=== PATIENT | female | born 1950 | race Caucasian/White ===

== ENCOUNTER 2021-01-07 20:36 | Inpatient (IN) | payer OTHER ==
[~2021-01-07] VITALS: Ht 162.6 cm; Wt 65.5 kg
[2021-01-07 20:56] VITALS: BP 141/64
[2021-01-07] MEDS ORDERED: ZOFRAN ODT4 MG PO (21:02)
[2021-01-07] MEDS ORDERED: ACID-PEP20 MG PO (21:02)
[2021-01-07] MEDS ORDERED: PHENERGAN 25 MG25 M1 PO (21:02)
[2021-01-07] MEDS ORDERED: DIFLUCAN100 MG PO (21:03)
[2021-01-07] MEDS ORDERED: VALACYCLOVIR1000 MG PO (21:03)
[2021-01-07 21:23] LABS: HEMATOCRIT 26.1 % (37.0-47.0); HEMOGLOBIN 9.1 gm/dL (12.0-15.0); MCH 31.1 pg (26.0-34.0); MCHC 34.7 g/dL (28.0-37.0); MCV 89.5 fL (80.0-100.0); MPV 8.7 fl. (7.2-11.1); NUCLEATED RBCS 0 /100WBC; PLATELET COUNT* 118 thou/uL (150-400); RBC 2.92 mil/uL (4.20-5.00); RDW-CV 17.4 % (10.5-14.5); WBC 4.8 thou/uL (4.0-11.0)
[2021-01-07 21:39] LABS: CALCIUM 8.8 mg/dL (8.5-10.1); POTASSIUM 4.3 mmol/L (3.5-5.1)
[2021-01-07 21:44] LABS: ALBUMIN 2.8 g/dL (3.4-5.0); APTT 24.4 Seconds (25.0-31.3); INR 1.1; PROTIME 11.2 Seconds (9.20-11.50); TOTAL BILIRUBIN 0.3 mg/dL (<0.1-1.0); TOTAL PROTEIN 6.5 g/dL (6.4-8.2)
[2021-01-07 22:07] LABS: ABSOLUTE LYMPHOCYTES 0.3 thou/uL (0.8-5.3); ABSOLUTE MONOCYTES 0.8 thou/uL (0.0-1.2); ABSOLUTE NEUTROPHILS 3.7 thou/uL (1.6-8.1)
[2021-01-07 22:08] LABS: ANISOCYTOSIS 1+; MICROCYTES 1+; PLATELET ESTIMATE ADEQUATE
[2021-01-08] VITALS (7 sets, daily range): BP systolic 95–115; BP diastolic 51–76
[2021-01-08 00:38] LABS: URINE BILIRUBIN NEGATIVE (Negative); URINE BLOOD NEGATIVE (Negative); URINE CLARITY CLEAR; URINE COLOR YELLOW; URINE GLUCOSE-RANDOM NEGATIVE (Negative); URINE KETONES TRACE (Negative); URINE LEUKOCYTES-REFLEX NEGATIVE (Negative); URINE NITRITE-REFLEX NEGATIVE (Negative); URINE PROTEIN TRACE (Negative); URINE SPECIFIC GRAVITY 1.015 (1.005-1.030); URINE UROBILINOGEN 0.2 E.U./dl (0.2-1.0)
--- NOTE | 2021-01-08 14:25 | EKG ---
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1950 Requested By: Bettina Coronado Order Number: [id number] MD: Goldy Brown Measurements Intervals [place] Rate: 170 P: [place]: QRS: 6 QRSD: 107 T: 60 QT: 295 QTc: 497 Interpretive Statements Atrial fibrillation with rapid V-rate Ventricular premature complex Minor IVCD Low voltage, precordial leads Baseline wander in lead(s) I,III,aVL No previous ECG available for comparison Electronically Signed On 01-08-2021 14:25:34 CDT by Goldy Brown [email or web address] <ELECTRONICALLY SIGNED> By: Goldy Brown MD, [facility] 01/08/21 1425 07 07 Goldy Brown MD, FAC /EPI
--- NOTE | 2021-01-08 15:18 | 2DMMODE ---
[place] [address] 2 D/M-MODE ECHOCARDIOGRAM Name: KATI YEE Johanna Room: [address] IN M.R.#: [id number] Admission: 01/08/21 Attend Phys: Elise Agustin MD Discharge: Date of : 48 Date of Service: 01/08/21 1517 Report #: [id number] THIS REPORT FOR: cc: Maria Ramírez MD, Diane S. MD Holkins,Goldy Elise MD [facility] ~ APPROVED REPORT Study performed: 01/08/2021 14:30:36 EXAM: Comprehensive 2D, Doppler, and color-flow Echocardiogram Patient Location: Bedside BSA: 1.72 HR: 77 bpm BP: 105/54 mmHg Other Information Study Quality: Good Indications Atrial Fibrillation 2D Dimensions IVSd: 12.98 (7-11mm) LVOT Diam: 19.27 (18-24mm) LVDd: 36.90 mm PWd: 10.83 (7-11mm) Ascending Ao: 30.06 (22-36mm) LVDs: 30.90 (25-40mm) Aortic Root: 22.21 mm Volumes Left Atrial Volume (Systole) LA ESV Index: 27.60 mL/m2 Aortic Valve AoV Peak Jey.: 1.24 m/s AO Peak Gr.: 6.12 mmHg LVOT Max P.89 mmHg AO Mean Gr.: 3.36 mmHg LVOT Mean P.39 mmHg LVOT Max V: 1.11 m/s AO V2 VTI: 16.69 cm LVOT Mean V: 0.71 m/s AVERY (VTI): 3.01 cm2 LVOT V1 VTI: 17.23 cm Mitral Valve E/A Ratio: 5.71 [place] [address] 2 D/M-MODE ECHOCARDIOGRAM Name: KATI YEE Room: [address] IN .R.#: [id number] Admission: 01/08/21 Attend Phys: Elise Agustin MD Discharge: Date of : 48 Date of Service: 01/08/21 1517 Report #: [id number] MV Decel. Time: 124.32 ms MV E Max Jey.: 1.47 m/s MV PHT: 36.05 ms MVA (PHT): 6.10 cm2 TDI E/Lateral E': 8.17 E/Medial E': 6.68 Medial E' Jey.: 0.22 m/s Lateral E' Jey.: 0.18 m/s Pulmonary Valve PV Peak Jey.: 0.98 m/s PV Peak Gr.: 3.86 mmHg Tricuspid Valve RAP Estimate: 5.00 mmHg TR Peak Gr.: 21.12 mmHg RVSP: 26.12 mmHg PA Pressure: 26.12 mmHg Left Ventricle The left ventricle is normal size. There is normal LV segmental wall motion. There is normal left ventricular wall thickness. Left ventricular systolic function is normal. The left ventricular ejection fraction is within the normal range. LVEF is 60%. This study is not technically sufficient to allow evaluation of the LV diastolic function. Right Ventricle The right ventricle is normal size. The right ventricular systolic function is normal. Atria Left atrium is borderline dilated. Right atrium is at the upper limits of normal. Aortic Valve The aortic valve is normal in structure. No aortic regurgitation is present. There is no aortic valvular stenosis. Mitral Valve The mitral valve is normal in structure. Trace mitral regurgitation. No evidence of mitral valve stenosis. Tricuspid Valve The tricuspid valve is normal in structure. [place] [address] 2 D/M-MODE ECHOCARDIOGRAM Name: KATI YEE Room: [address] IN [facility]#: [id number] Admission: 01/08/21 Attend Phys: Elise Agustin MD Discharge: Date of : 48 Date of Service: 01/08/21 1517 Report #: [id number] Pulmonic Valve The pulmonary valve is normal in structure. There is no pulmonic valvular regurgitation. Great Vessels The aortic root is normal in size. IVC is normal in size and collapses >50% with inspiration. Pericardium There is no pericardial effusion. <Conclusion> The left ventricle is normal size. There is normal left ventricular wall thickness. Left ventricular systolic function is normal. The left ventricular ejection fraction is within the normal range. LVEF is 60%. This study is not technically sufficient to allow evaluation of the LV diastolic function. The right ventricle is normal size. Left atrium is borderline dilated. Right atrium is at the upper limits of normal. The aortic valve is normal in structure. The mitral valve is normal in structure. Trace mitral regurgitation. The tricuspid valve is normal in structure. IVC is normal in size and collapses >50% with inspiration. There is no pericardial effusion. There is normal LV segmental wall motion. <ELECTRONICALLY SIGNED> By: Goldy Brown MD, FACC 01/08/21 1517 151 151 Goldy Brown MD, FACC /INF
[2021-01-08 17:18] LABS: ABSOLUTE LYMPHOCYTES 0.2 thou/uL (0.8-5.3); ABSOLUTE MONOCYTES 0.4 thou/uL (0.0-1.2); ABSOLUTE NEUTROPHILS 5.5 thou/uL (1.6-8.1); BASOPHILS 0.1 %; HEMOGLOBIN 8.3 gm/dL (12.0-15.0); LYMPHOCYTES 2.6 %; MCHC 34.7 g/dL (28.0-37.0); MCV 89.4 fL (80.0-100.0); MPV 8.5 fl. (7.2-11.1); NUCLEATED RBCS 0 /100WBC; PLATELET COUNT* 122 thou/uL (150-400); POLYS 90.3 %; RBC 2.69 mil/uL (4.20-5.00); RDW-CV 17.6 % (10.5-14.5); WBC 6.1 thou/uL (4.0-11.0)
[2021-01-08 17:25] LABS: CALCIUM 7.9 mg/dL (8.5-10.1); CREATININE 0.8 mg/dL (0.6-1.3); MAGNESIUM 1.7 mg/dL (1.8-2.4); POTASSIUM 4.2 mmol/L (3.5-5.1)
[2021-01-09] VITALS (7 sets, daily range): BP systolic 91–127; BP diastolic 59–75
[2021-01-09 04:18] LABS: HEMOGLOBIN 7.7 gm/dL (12.0-15.0); MCH 30.7 pg (26.0-34.0); WBC 5.3 thou/uL (4.0-11.0)
[2021-01-09 04:20] LABS: ABSOLUTE LYMPHOCYTES 0.1 thou/uL (0.8-5.3); ABSOLUTE MONOCYTES 0.2 thou/uL (0.0-1.2); BASOPHILS 0.1 %; EOSINOPHILS 0.1 %; HEMATOCRIT 22.4 % (37.0-47.0); LYMPHOCYTES 2.2 %; MCHC 34.2 g/dL (28.0-37.0); MCV 89.8 fL (80.0-100.0); MONOCYTES 3.2 %; MPV 8.8 fl. (7.2-11.1); NUCLEATED RBCS 0 /100WBC; PLATELET COUNT* 119 thou/uL (150-400); POLYS 94.4 %; RBC 2.49 mil/uL (4.20-5.00)
[2021-01-09 04:31] LABS: CALCIUM 8.1 mg/dL (8.5-10.1); POTASSIUM 3.5 mmol/L (3.5-5.1)
[2021-01-10 00:35] VITALS: BP 122/73
[2021-01-10 04:48] LABS: CALCIUM 8.4 mg/dL (8.5-10.1); POTASSIUM 3.9 mmol/L (3.5-5.1)
[2021-01-10 05:19] LABS: ABSOLUTE LYMPHOCYTES 0.1 thou/uL (0.8-5.3); ABSOLUTE MONOCYTES 0.4 thou/uL (0.0-1.2); ABSOLUTE NEUTROPHILS 10.1 thou/uL (1.6-8.1); BASOPHILS 0.1 %; HEMATOCRIT 23.8 % (37.0-47.0); HEMOGLOBIN 8.2 gm/dL (12.0-15.0); LYMPHOCYTES 1.4 %; MCH 31.1 pg (26.0-34.0); MCHC 34.6 g/dL (28.0-37.0); MONOCYTES 3.6 %; NUCLEATED RBCS 0 /100WBC; PLATELET COUNT* 157 thou/uL (150-400); POLYS 94.9 %; RBC 2.65 mil/uL (4.20-5.00); RDW-CV 17.6 % (10.5-14.5); WBC 10.7 thou/uL (4.0-11.0)
[2021-01-10 05:46] VITALS: BP 96/44
[2021-01-10 08:00] VITALS: BP 133/72
[2021-01-10 12:47] VITALS: BP 129/70
--- NOTE | 2021-01-10 16:42 | EKG ---
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1950 Requested By: Andreea Granados Order Number: [id number] Reading MD: Goldy Brown Measurements Intervals [place] Rate: 82 P: 50 [place]: 161 QRS: -3 QRSD: 89 T: 8 QT: 500 QTc: 584 Interpretive Statements Sinus rhythm Probable left atrial enlargement Borderline abnrm T, anterolateral leads Prolonged QT interval Compared to ECG 01/07/2021 21:08:18 Prolonged QT interval now present Atrial fibrillation no longer present Ventricular premature complex(es) no longer present Intraventricular conduction delay no longer present Electronically Signed On 01-10-2021 16:42:17 CDT by Goldy Brown [email or web address] <ELECTRONICALLY SIGNED> By: Goldy Brown MD, [facility] 01/10/21 1642 1523 1523 Goldy Brown MD, [facility] /EPI
--- NOTE | 2021-01-10 16:57 | EKG ---
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 : 1950 Requested By: Andreea Granados Order Number: [id number] Reading MD: Goldy Brown Measurements Intervals [place] Rate: 134 P: [place]: QRS: -18 QRSD: 91 T: 7 QT: 324 QTc: 484 Interpretive Statements Atrial flutter Abnormal R-wave progression, late transition Inferior infarct, old Baseline wander in lead(s) II,III,aVF Compared to ECG 01/09/2021 15:23:42 Myocardial infarct finding now present Sinus rhythm no longer present Prolonged QT interval no longer present Electronically Signed On 01-10-2021 16:56:53 CDT by Goldy Brown [email or web address] <ELECTRONICALLY SIGNED> By: Goldy Brown MD, [facility] 01/10/21 1656 1335 133 Goldy Brown MD, [facility] /EPI
[2021-01-10 17:00] VITALS: BP 134/74
[2021-01-11] VITALS (41 sets, daily range): BP systolic 98–157; BP diastolic 54–87
[2021-01-11 04:45] LABS: ABSOLUTE LYMPHOCYTES 0.1 thou/uL (0.8-5.3); ABSOLUTE MONOCYTES 0.5 thou/uL (0.0-1.2); ABSOLUTE NEUTROPHILS 14.1 thou/uL (1.6-8.1); BASOPHILS 0.1 %; HEMATOCRIT 22.9 % (37.0-47.0); HEMOGLOBIN 7.8 gm/dL (12.0-15.0); LYMPHOCYTES 0.9 %; MCH 30.5 pg (26.0-34.0); MCHC 34.2 g/dL (28.0-37.0); MONOCYTES 3.2 %; MPV 8.6 fl. (7.2-11.1); NUCLEATED RBCS 0 /100WBC; PLATELET COUNT* 159 thou/uL (150-400); POLYS 95.8 %; RBC 2.57 mil/uL (4.20-5.00); RDW-CV 17.5 % (10.5-14.5); WBC 14.7 thou/uL (4.0-11.0)
[2021-01-11 04:59] LABS: ALBUMIN 2.3 g/dL (3.4-5.0); CALCIUM 8.6 mg/dL (8.5-10.1); CREATININE 0.9 mg/dL (0.6-1.3); POTASSIUM 4.4 mmol/L (3.5-5.1); TOTAL BILIRUBIN 0.4 mg/dL (<0.1-1.0); TOTAL PROTEIN 5.7 g/dL (6.4-8.2)
[2021-01-11 11:09] LABS: BE 0 mmol/L (-2 to +3); PCO2 41.4 mmHg (35.0-45.0); PO2 70.5 mmHg (75.0-100.0); pH 7.397 (7.340-7.450)
[2021-01-11 14:52] LABS: BE 1.4 mmol/L (-2 to +3); PO2 110.4 mmHg (75.0-100.0); pH 7.436 (7.340-7.450)
[2021-01-12] VITALS (48 sets, daily range): BP systolic 89–151; BP diastolic 44–80
[2021-01-12 03:34] LABS: HEMATOCRIT 25.8 % (37.0-47.0); HEMOGLOBIN 8.8 gm/dL (12.0-15.0); MCH 30.8 pg (26.0-34.0); MCHC 34.2 g/dL (28.0-37.0); MPV 8.7 fl. (7.2-11.1); NUCLEATED RBCS 0 /100WBC; PLATELET COUNT* 169 thou/uL (150-400); RBC 2.86 mil/uL (4.20-5.00); RDW-CV 17.4 % (10.5-14.5); WBC 10.3 thou/uL (4.0-11.0)
[2021-01-12 03:51] LABS: ALBUMIN 2.3 g/dL (3.4-5.0); CALCIUM 8.5 mg/dL (8.5-10.1); CREATININE 0.9 mg/dL (0.6-1.3); MAGNESIUM 2.2 mg/dL (1.8-2.4); PHOSPHORUS* 4.1 mg/dL (2.5-4.9); POTASSIUM 3.8 mmol/L (3.5-5.1); TOTAL BILIRUBIN 0.4 mg/dL (<0.1-1.0)
[2021-01-12 07:34] LABS: BE 2.3 mmol/L (-2 to +3); PCO2 40.5 mmHg (35.0-45.0); PO2 77.1 mmHg (75.0-100.0); pH 7.436 (7.340-7.450)
[2021-01-12 07:58] LABS: ABSOLUTE LYMPHOCYTES 0.2 thou/uL (0.8-5.3); ABSOLUTE MONOCYTES 0.4 thou/uL (0.0-1.2); ABSOLUTE NEUTROPHILS 9.7 thou/uL (1.6-8.1); ANISOCYTOSIS 1+; PLATELET ESTIMATE ADEQUATE; POIKILOCYTOSIS 1+
[2021-01-13] VITALS (47 sets, daily range): BP systolic 104–160; BP diastolic 49–78
[2021-01-13 04:34] LABS: ABSOLUTE LYMPHOCYTES 0.1 thou/uL (0.8-5.3); ABSOLUTE MONOCYTES 0.3 thou/uL (0.0-1.2); ABSOLUTE NEUTROPHILS 8.8 thou/uL (1.6-8.1); BASOPHILS 0.2 %; HEMATOCRIT 24.1 % (37.0-47.0); HEMOGLOBIN 8.2 gm/dL (12.0-15.0); LYMPHOCYTES 0.8 %; MCH 30.6 pg (26.0-34.0); MCV 89.9 fL (80.0-100.0); MONOCYTES 2.8 %; MPV 9.1 fl. (7.2-11.1); NUCLEATED RBCS 0 /100WBC; PLATELET COUNT* 184 thou/uL (150-400); POLYS 96.2 %; RBC 2.68 mil/uL (4.20-5.00); RDW-CV 17.2 % (10.5-14.5); WBC 9.2 thou/uL (4.0-11.0)
[2021-01-13 05:02] LABS: ALBUMIN 2.6 g/dL (3.4-5.0); CALCIUM 8.8 mg/dL (8.5-10.1); CREATININE 0.8 mg/dL (0.6-1.3); MAGNESIUM 2.1 mg/dL (1.8-2.4); PHOSPHORUS* 3.9 mg/dL (2.5-4.9); POTASSIUM 3.7 mmol/L (3.5-5.1); TOTAL BILIRUBIN 0.3 mg/dL (<0.1-1.0); TOTAL PROTEIN 5.8 g/dL (6.4-8.2)
--- NOTE | 2021-01-13 10:30 | EKG ---
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1950 Requested By: Alec Everett Order Number: [id number] Reading MD: Florentino Smith Measurements Intervals [place] Rate: 47 P: 40 [place]: 161 QRS: 7 QRSD: 96 T: 18 QT: 565 QTc: 500 Interpretive Statements Sinus bradycardia Probable left atrial enlargement Borderline prolonged QT interval Baseline wander in lead(s) III Compared to ECG 01/10/2021 13:35:23 Atrial flutter no longer present Electronically Signed On 01-13-2021 10:30:10 CDT by Florentino Smith [email or web address] <ELECTRONICALLY SIGNED> By: Florentino Smith MD, FAC 01/13/21 1030 1336 1336 Florentino Smith MD, FAC /EPI
--- NOTE | 2021-01-13 13:52 | EKG ---
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
--- NOTE | 2021-01-13 15:08 | CON ---
[address] [address] CONSULTATION Name: KATI YEE Room: [address] IN M.R.#: [id number] Admission: 01/08/21 Attend Phys: Elise Agustin MD Discharge: Date of : 48 Report #: [id number] THIS REPORT FOR: cc: Maria Ramírez MD, Diane S. MD Pervez, Adeel MD ~ DOC #: [id number] Luciano Cox MD DATE OF CONSULTATION: 01/08/2021 REQUESTING PHYSICIAN: Consult has been requested by Dr. Fernández. INDICATION FOR CONSULTATION: COVID-19. HISTORY OF PRESENT ILLNESS: This is a 70-year-old female, past medical history includes a history of breast cancer. She is a lifetime nonsmoker and does not have a history of a cardiac or respiratory disease in the past. The patient is currently on chemotherapy. The patient is now admitted with increasing shortness of breath as well as a cough for the last 1 week. She has been coughing up yellow sputum. She has also had hemoptysis, sputum production is new for her. She has also been feeling dizzy. The patient upon initial evaluation, tested positive for COVID-19. Initially, she also was requiring only 2 liters of oxygen to maintain O2 saturation. She has had atrial fibrillation with RVR since yesterday. Atrial fibrillation is new for her. The patient also has had a significant increase in oxygen needs, we are now up to 12 liters of oxygen to maintain O2 saturation in the low 90s. The patient does appear to be anxious. There is not much swelling of lower extremities; however, I just ordered a stat chest x-ray, which just came back and it does not look significantly worse than yesterday. The patient does have a Port-A-Cath. She has been febrile. REVIEW OF SYSTEMS: Review of systems for 12-points is negative except as mentioned above. PAST MEDICAL HISTORY: Breast cancer and is currently receiving chemotherapy. Last chemo was on 12/26/2020. She has a Port-A-Cath. SOCIAL HISTORY: She is a lifetime nonsmoker. Only occasional alcohol use. No known history of illegal drug use. ALLERGIES: SHE REPORTS THAT SHE HAS A REMOTE HISTORY OF ALLERGY TO CEPHALEXIN, BUT WAS NOT ABLE TO TELL ME THE REACTION. SHE SAYS THAT SHE HAS HAD PENICILLINS INCLUDING AMOXICILLIN WITHOUT PROBLEMS. FAMILY HISTORY: There [place] [address] CONSULTATION Name: KATI YEE Room: [address]#: [id number] Admission: 01/08/21 Attend Phys: Elise Agustin MD Discharge: Date of : 48 Report #: [id number] PHYSICAL EXAMINATION: GENERAL: She is alert, awake and oriented, appears to be anxious. VITAL SIGNS: Has a pulse of 78, blood pressure of 115/66, respiratory rate was in the mid 20s at the time of my evaluation around 25. She has a low-grade fever at 37.7, heart rate is now 78, has had heart rates up to 165 overnight. Body mass index is 25. HEENT: Head is normocephalic and atraumatic. There is no obvious thrush in her throat. There is no throat erythema. Pupils are equal and reactive. NECK: Does not show raised JVP asymmetry, mass or lymph nodes. CHEST: Symmetrical expansion on inspection and palpation on auscultation. Breath sounds are bilaterally equal, but decreased. I do not hear any added sounds. HEART: Regular. There is no murmur. ABDOMEN: Soft and nontender. LOWER EXTREMITIES: Show no edema, no calf tenderness. SKIN: Dry and intact. NEUROLOGIC: Moves all extremities bilaterally equally and spontaneously with no focal deficit identified. LABORATORY DATA: The patient had a CTA chest performed yesterday, which shows extensive infiltrates secondary to COVID-19, I suspect that there is a secondary bacterial infection as well. This is reviewed. There are no pulmonary emboli. The chest x-ray now look significantly worse than yesterday. The patient's lab work in [place] from yesterday is reviewed. I ordered repeat labs now, which are pending. ASSESSMENT AND PLAN: 1. Acute hypoxemic respiratory failure secondary to COVID-19. I suspect that there is a secondary bacterial infection as well. We will continue to titrate oxygen. If the patient fails to improve, available low threshold of adding a BiPAP while asleep. I would recommend that she be transferred to a negative pressure room as I do feel that there is a component of bronchospasm and I do want to give her nebulized bronchodilators. 2. COVID-19. I agree with dexamethasone. The question is as to whether we should increase the dose. For now, I kept the current dose of 6 mg, I switched over to IV as administration of Decadron is critical. I went ahead and ordered one dose of Solu-Medrol, now we will reassess the dexamethasone dose tomorrow. I have recommended that she start Remdesivir. I have discussed risks and benefits of convalescent plasma with the patient as well. I will go ahead and give her a unit today. I will consider giving her another unit tomorrow. I assessed I weighed the risks and benefits of giving her Actemra certainly for COVID-19. It will be beneficial. However, the patient may have a secondary [facility] [address] [place] [address] CONSULTATION Name: KATI YEE Room: [address] ADM IN ..#: [id number] Admission: 01/08/21 Attend Phys: Elise Agustin MD Discharge: Date of : 48 Report #: [id number] bacterial infection, which does increase the risks and administration of Actemra. For now, I therefore did not order Actemra, but if she was to worsen, then I will consider it. 3. Pulmonary infiltrates. She is coughing up yellow sputum. She has had hemoptysis as well in addition to having COVID-19, I suspect that she has a secondary bacterial infection. She has a Port-A-Cath. Therefore, I ordered blood cultures as well as a nasal swab for MRSA. We will try to do a sputum culture as well if possible. We will subsequently go ahead and start her on vancomycin. I evaluated as to whether I should give her Levaquin or give her Zosyn in combination. She is on flecainide. She has had arrhythmias. Levaquin can prolong the QT. The patient has previously tolerated penicillins without problems and therefore, for now we ordered Zosyn. This will not provide a significant atypical coverage, but my suspicion of atypical infection is low. 4. Fluid overload. I plan to give her Lasix. I discontinued IV fluids. I will order Lasix after reviewing labs, which I just ordered and are pending at this time. 5. Atrial fibrillation with rapid ventricular response, rate is under control now. This is new for her. Management is as per the cardiology service. 6. Deep venous thrombosis prophylaxis. She is on Lovenox. 7. GI prophylaxis. We will give her Protonix. 8. C. difficile prophylaxis, Lactinex. The patient is critically ill with acute hypoxemic respiratory failure secondary to COVID-19. Total time spent providing critical care to this patient today exceeds 45 minutes. Luciano Cox MD AP/TARA <ELECTRONICALLY SIGNED> By: Luciano Cox MD 01/13/21 1508 1624 1937Amichael Cox MD /nt
[2021-01-13 17:26] LABS: CALCIUM 8.5 mg/dL (8.5-10.1); CREATININE 0.8 mg/dL (0.6-1.3); MAGNESIUM 2.1 mg/dL (1.8-2.4); POTASSIUM 4.2 mmol/L (3.5-5.1)
[2021-01-14] VITALS (37 sets, daily range): BP systolic 76–162; BP diastolic 37–71
[2021-01-14 05:25] LABS: ABSOLUTE BASOPHILS 0.1 thou/uL (0.0-0.2); ABSOLUTE LYMPHOCYTES 0.1 thou/uL (0.8-5.3); ABSOLUTE MONOCYTES 0.2 thou/uL (0.0-1.2); ABSOLUTE NEUTROPHILS 10.1 thou/uL (1.6-8.1); BASOPHILS 0.9 %; HEMATOCRIT 24.4 % (37.0-47.0); HEMOGLOBIN 8.3 gm/dL (12.0-15.0); LYMPHOCYTES 0.8 %; MCH 31.1 pg (26.0-34.0); MCHC 34.1 g/dL (28.0-37.0); MCV 91.1 fL (80.0-100.0); MONOCYTES 2.3 %; NUCLEATED RBCS 0 /100WBC; PLATELET COUNT* 188 thou/uL (150-400); RBC 2.68 mil/uL (4.20-5.00); RDW-CV 17.6 % (10.5-14.5); WBC 10.5 thou/uL (4.0-11.0)
[2021-01-14 05:51] LABS: ALBUMIN 2.4 g/dL (3.4-5.0); CALCIUM 8.5 mg/dL (8.5-10.1); CREATININE 0.7 mg/dL (0.6-1.3); MAGNESIUM 2.2 mg/dL (1.8-2.4); PHOSPHORUS* 2.8 mg/dL (2.5-4.9); POTASSIUM 4.3 mmol/L (3.5-5.1); TOTAL BILIRUBIN 0.3 mg/dL (<0.1-1.0); TOTAL PROTEIN 5.5 g/dL (6.4-8.2)
[2021-01-14 08:33] LABS: BE 2.6 mmol/L (-2 to +3); PCO2 44.6 mmHg (35.0-45.0); PO2 60.6 mmHg (75.0-100.0); pH 7.409 (7.340-7.450)
[2021-01-14 17:35] LABS: CALCIUM 8.2 mg/dL (8.5-10.1); CREATININE 0.7 mg/dL (0.6-1.3); MAGNESIUM 1.9 mg/dL (1.8-2.4); POTASSIUM 3.7 mmol/L (3.5-5.1)
[2021-01-15] VITALS (30 sets, daily range): BP systolic 85–184; BP diastolic 31–74
[2021-01-15 05:53] LABS: HEMOGLOBIN 9.7 gm/dL (12.0-15.0); MCH 29.9 pg (26.0-34.0); MCHC 33.6 g/dL (28.0-37.0); MCV 89.1 fL (80.0-100.0); MPV 9.2 fl. (7.2-11.1); NUCLEATED RBCS 0 /100WBC; RBC 3.26 mil/uL (4.20-5.00); RDW-CV 17.2 % (10.5-14.5)
[2021-01-15 06:02] LABS: PHOSPHORUS* 3.5 mg/dL (2.5-4.9)
[2021-01-15 06:05] LABS: CALCIUM 8.5 mg/dL (8.5-10.1); CREATININE 0.8 mg/dL (0.6-1.3); POTASSIUM 4.1 mmol/L (3.5-5.1); TOTAL BILIRUBIN 0.6 mg/dL (<0.1-1.0); TOTAL PROTEIN 6.1 g/dL (6.4-8.2)
[2021-01-15 06:52] LABS: PLATELET COUNT* 290 thou/uL (150-400)
[2021-01-15 07:37] LABS: ABSOLUTE LYMPHOCYTES 0.3 thou/uL (0.8-5.3); ABSOLUTE MONOCYTES 0.2 thou/uL (0.0-1.2); ABSOLUTE NEUTROPHILS 15.5 thou/uL (1.6-8.1); METAMYELOCYTES 4 %
[2021-01-15 18:50] LABS: CREATININE 0.8 mg/dL (0.6-1.3); MAGNESIUM 2.1 mg/dL (1.8-2.4); POTASSIUM 4.3 mmol/L (3.5-5.1)
[2021-01-16] VITALS (34 sets, daily range): BP systolic 96–187; BP diastolic 47–81
[2021-01-16 05:42] LABS: ABSOLUTE LYMPHOCYTES 0.1 thou/uL (0.8-5.3); ABSOLUTE MONOCYTES 0.9 thou/uL (0.0-1.2); ABSOLUTE NEUTROPHILS 15.9 thou/uL (1.6-8.1); BASOPHILS 0.2 %; EOSINOPHILS 0.1 %; HEMATOCRIT 32.6 % (37.0-47.0); HEMOGLOBIN 11.1 gm/dL (12.0-15.0); LYMPHOCYTES 0.8 %; MCH 30.5 pg (26.0-34.0); MCHC 34.1 g/dL (28.0-37.0); MCV 89.4 fL (80.0-100.0); MONOCYTES 5.1 %; MPV 9.4 fl. (7.2-11.1); NUCLEATED RBCS 0 /100WBC; PLATELET COUNT* 273 thou/uL (150-400); POLYS 93.8 %; RBC 3.65 mil/uL (4.20-5.00); RDW-CV 16.9 % (10.5-14.5); WBC 16.9 thou/uL (4.0-11.0)
[2021-01-16 06:15] LABS: ALBUMIN 3.4 g/dL (3.4-5.0); CALCIUM 9.2 mg/dL (8.5-10.1); MAGNESIUM 2.2 mg/dL (1.8-2.4); POTASSIUM 4.3 mmol/L (3.5-5.1); TOTAL BILIRUBIN 0.6 mg/dL (<0.1-1.0); TOTAL PROTEIN 6.2 g/dL (6.4-8.2)
[2021-01-16 13:03] LABS: CALCIUM 8.8 mg/dL (8.5-10.1); CREATININE 0.8 mg/dL (0.6-1.3); POTASSIUM 4.4 mmol/L (3.5-5.1)
[2021-01-16 14:26] LABS: URINE BILIRUBIN NEGATIVE (Negative); URINE BLOOD NEGATIVE (Negative); URINE CLARITY CLEAR; URINE COLOR YELLOW; URINE GLUCOSE-RANDOM TRACE (Negative); URINE KETONES NEGATIVE (Negative); URINE LEUKOCYTES-REFLEX NEGATIVE (Negative); URINE NITRITE-REFLEX NEGATIVE (Negative); URINE PROTEIN TRACE (Negative); URINE SPECIFIC GRAVITY 1.015 (1.005-1.030); URINE UROBILINOGEN 0.2 E.U./dl (0.2-1.0)
[2021-01-17] VITALS (34 sets, daily range): BP systolic 81–157; BP diastolic 37–67
[2021-01-17 05:08] LABS: HEMATOCRIT 27.7 % (37.0-47.0); HEMOGLOBIN 9.4 gm/dL (12.0-15.0); MCH 30.8 pg (26.0-34.0); MCV 90.7 fL (80.0-100.0); MPV 9.3 fl. (7.2-11.1); RBC 3.06 mil/uL (4.20-5.00); WBC 14.9 thou/uL (4.0-11.0)
[2021-01-17 05:24] LABS: CALCIUM 8.2 mg/dL (8.5-10.1); CREATININE 0.6 mg/dL (0.6-1.3); POTASSIUM 4.7 mmol/L (3.5-5.1)
--- NOTE | 2021-01-17 13:36 | IN ---
[facility] [address] [place] [address] INTERIM NOTE Name: KATI YEE Room: [address] IN .R.#: [id number] Admission: 01/08/21 Attend Phys: Elise Agustin MD Discharge: Date of : 48 Report #: [id number] THIS REPORT FOR: cc: Maria Ramírez MD, Diane S. MD Elia, Manana MD ~ DOC #: [id number] Meghna Neville MD DATE OF SERVICE: 01/14/2021 I did a note, but I do not see in the chart, so I am dictating the note again. SUBJECTIVE: She is intubated and sedated. OBJECTIVE: VITAL SIGNS: Blood pressure is 110/50, heart rate is 54, temperature 99.0. SKIN: No bruises reported by the nurses. Physical exam done digitally by inspection. LABORATORY DATA: White count 10.5, hemoglobin 8.3, platelets 188. ASSESSMENT AND PLAN: 1. Anemia, multifactorial. The patient had recent chemotherapy. Bone marrow suppression due to infection. 2. COVID pneumonia, agree with management, appears to be stable. 3. History of triple negative breast cancer. The patient is undergoing neoadjuvant chemotherapy, currently chemotherapy is on hold. We will resume chemotherapy or proceed with surgery after the patient recovers from current condition. Meghna Neville MD [place]/GAU <ELECTRONICALLY SIGNED> By: Meghna Neville MD 01/17/21 1336 1112 1153Meghna Neville MD /nt
[2021-01-17 13:46] LABS: BE 3.3 mmol/L (-2 to +3); PCO2 37.4 mmHg (35.0-45.0); PO2 69.1 mmHg (75.0-100.0); pH 7.475 (7.340-7.450)
[2021-01-18] VITALS (68 sets, daily range): BP systolic 74–159; BP diastolic 40–83
[2021-01-18 06:02] LABS: ABSOLUTE BASOPHILS 0.1 thou/uL (0.0-0.2); ABSOLUTE LYMPHOCYTES 0.2 thou/uL (0.8-5.3); ABSOLUTE MONOCYTES 1.5 thou/uL (0.0-1.2); BASOPHILS 0.2 %; HEMATOCRIT 31.1 % (37.0-47.0); HEMOGLOBIN 10.5 gm/dL (12.0-15.0); LYMPHOCYTES 0.8 %; MCH 30.6 pg (26.0-34.0); MCHC 33.9 g/dL (28.0-37.0); MCV 90.3 fL (80.0-100.0); MONOCYTES 4.9 %; MPV 9.9 fl. (7.2-11.1); NUCLEATED RBCS 0 /100WBC; POLYS 94.1 %; RBC 3.44 mil/uL (4.20-5.00); RDW-CV 17.9 % (10.5-14.5); WBC 29.8 thou/uL (4.0-11.0)
[2021-01-18 06:03] LABS: HEMOGLOBIN 10.6 gm/dL (12.0-15.0); MCH 30.6 pg (26.0-34.0); MCHC 34.2 g/dL (28.0-37.0); MCV 89.7 fL (80.0-100.0); MPV 9.5 fl. (7.2-11.1); RBC 3.46 mil/uL (4.20-5.00); RDW-CV 17.3 % (10.5-14.5); WBC 29.8 thou/uL (4.0-11.0)
[2021-01-18 06:20] LABS: ALBUMIN 2.8 g/dL (3.4-5.0); CALCIUM 8.9 mg/dL (8.5-10.1); CREATININE 0.6 mg/dL (0.6-1.3); MAGNESIUM 2.5 mg/dL (1.8-2.4); PLATELET COUNT* 351 thou/uL (150-400); POTASSIUM 4.8 mmol/L (3.5-5.1); TOTAL BILIRUBIN 0.7 mg/dL (<0.1-1.0); TOTAL PROTEIN 5.5 g/dL (6.4-8.2)
[2021-01-18 11:17] LABS: BE 5.9 mmol/L (-2 to +3); PO2 67.2 mmHg (75.0-100.0); pH 7.522 (7.340-7.450)
[2021-01-19] VITALS (83 sets, daily range): BP systolic 70–170; BP diastolic 39–88
[2021-01-19 05:16] LABS: HEMATOCRIT 28.6 % (37.0-47.0); HEMOGLOBIN 9.7 gm/dL (12.0-15.0); MCH 30.5 pg (26.0-34.0); MCHC 33.9 g/dL (28.0-37.0); MCV 90.2 fL (80.0-100.0); MPV 9.6 fl. (7.2-11.1); NUCLEATED RBCS 0 /100WBC; RBC 3.17 mil/uL (4.20-5.00); RDW-CV 17.9 % (10.5-14.5); WBC 29.3 thou/uL (4.0-11.0)
[2021-01-19 05:26] LABS: PLATELET COUNT* 252 thou/uL (150-400)
[2021-01-19 05:35] LABS: ALBUMIN 2.9 g/dL (3.4-5.0); CALCIUM 8.1 mg/dL (8.5-10.1); CREATININE 0.7 mg/dL (0.6-1.3); MAGNESIUM 2.4 mg/dL (1.8-2.4); PHOSPHORUS* 3.7 mg/dL (2.5-4.9); POTASSIUM 4.4 mmol/L (3.5-5.1); TOTAL BILIRUBIN 0.7 mg/dL (<0.1-1.0); TOTAL PROTEIN 5.3 g/dL (6.4-8.2)
[2021-01-19 07:33] LABS: ABSOLUTE LYMPHOCYTES 0.6 thou/uL (0.8-5.3); ABSOLUTE MONOCYTES 1.5 thou/uL (0.0-1.2); ABSOLUTE NEUTROPHILS 27.2 thou/uL (1.6-8.1); PLATELET ESTIMATE ADEQUATE
[2021-01-20] VITALS (34 sets, daily range): BP systolic 81–153; BP diastolic 50–91
[2021-01-20 05:18] LABS: HEMATOCRIT 27.6 % (37.0-47.0); HEMOGLOBIN 9.2 gm/dL (12.0-15.0); MCH 30.4 pg (26.0-34.0); MCHC 33.2 g/dL (28.0-37.0); MCV 91.5 fL (80.0-100.0); MPV 9.7 fl. (7.2-11.1); RBC 3.01 mil/uL (4.20-5.00); RDW-CV 19.1 % (10.5-14.5); WBC 22.2 thou/uL (4.0-11.0)
[2021-01-20 05:29] LABS: CALCIUM 8.1 mg/dL (8.5-10.1); CREATININE 0.6 mg/dL (0.6-1.3); POTASSIUM 4.2 mmol/L (3.5-5.1)
[2021-01-21] VITALS (22 sets, daily range): BP systolic 90–134; BP diastolic 53–76
[2021-01-21 05:48] LABS: ABSOLUTE LYMPHOCYTES 0.3 thou/uL (0.8-5.3); ABSOLUTE MONOCYTES 0.7 thou/uL (0.0-1.2); ABSOLUTE NEUTROPHILS 15.7 thou/uL (1.6-8.1); BASOPHILS 0.1 %; EOSINOPHILS 0.2 %; HEMATOCRIT 29.5 % (37.0-47.0); MCHC 33.8 g/dL (28.0-37.0); MCV 91.9 fL (80.0-100.0); MONOCYTES 4.4 %; MPV 9.7 fl. (7.2-11.1); NUCLEATED RBCS 0 /100WBC; PLATELET COUNT* 184 thou/uL (150-400); POLYS 93.3 %; RBC 3.21 mil/uL (4.20-5.00); RDW-CV 19.7 % (10.5-14.5); WBC 16.8 thou/uL (4.0-11.0)
[2021-01-21 06:00] LABS: ALBUMIN 3.4 g/dL (3.4-5.0); CALCIUM 8.7 mg/dL (8.5-10.1); CREATININE 0.8 mg/dL (0.6-1.3); MAGNESIUM 2.5 mg/dL (1.8-2.4); PHOSPHORUS* 4.3 mg/dL (2.5-4.9); POTASSIUM 3.5 mmol/L (3.5-5.1); POTASSIUM 3.7 mmol/L (3.5-5.1); TOTAL BILIRUBIN 0.8 mg/dL (<0.1-1.0); TOTAL PROTEIN 5.9 g/dL (6.4-8.2)
[2021-01-22] VITALS (23 sets, daily range): BP systolic 83–140; BP diastolic 40–90
[2021-01-22 05:42] LABS: ABSOLUTE BASOPHILS 0.2 thou/uL (0.0-0.2); ABSOLUTE LYMPHOCYTES 0.1 thou/uL (0.8-5.3); ABSOLUTE MONOCYTES 0.3 thou/uL (0.0-1.2); ABSOLUTE NEUTROPHILS 17.3 thou/uL (1.6-8.1); BASOPHILS 1.2 %; EOSINOPHILS 0.1 %; HEMATOCRIT 27.8 % (37.0-47.0); HEMOGLOBIN 9.5 gm/dL (12.0-15.0); LYMPHOCYTES 0.6 %; MCH 31.7 pg (26.0-34.0); MCHC 34.3 g/dL (28.0-37.0); MCV 92.5 fL (80.0-100.0); MONOCYTES 1.5 %; MPV 9.7 fl. (7.2-11.1); NUCLEATED RBCS 0 /100WBC; PLATELET COUNT* 162 thou/uL (150-400); POLYS 96.6 %; RBC 3.01 mil/uL (4.20-5.00); RDW-CV 20.6 % (10.5-14.5); WBC 17.9 thou/uL (4.0-11.0)
[2021-01-22 06:11] LABS: ALBUMIN 3.1 g/dL (3.4-5.0); CALCIUM 8.5 mg/dL (8.5-10.1); CREATININE 0.5 mg/dL (0.6-1.3); MAGNESIUM 2.3 mg/dL (1.8-2.4); POTASSIUM 4.1 mmol/L (3.5-5.1); TOTAL BILIRUBIN 0.6 mg/dL (<0.1-1.0); TOTAL PROTEIN 5.5 g/dL (6.4-8.2)
[2021-01-23] VITALS (33 sets, daily range): BP systolic 91–145; BP diastolic 29–75
[2021-01-23 05:08] LABS: ABSOLUTE BASOPHILS 0.1 thou/uL (0.0-0.2); ABSOLUTE LYMPHOCYTES 0.1 thou/uL (0.8-5.3); ABSOLUTE MONOCYTES 0.3 thou/uL (0.0-1.2); ABSOLUTE NEUTROPHILS 21.6 thou/uL (1.6-8.1); BASOPHILS 0.5 %; EOSINOPHILS 0.1 %; HEMOGLOBIN 9.4 gm/dL (12.0-15.0); LYMPHOCYTES 0.5 %; MCH 31.4 pg (26.0-34.0); MCHC 33.5 g/dL (28.0-37.0); MCV 93.6 fL (80.0-100.0); MONOCYTES 1.6 %; MPV 9.4 fl. (7.2-11.1); NUCLEATED RBCS 0 /100WBC; PLATELET COUNT* 178 thou/uL (150-400); POLYS 97.3 %; RBC 2.99 mil/uL (4.20-5.00); RDW-CV 21.5 % (10.5-14.5); WBC 22.2 thou/uL (4.0-11.0)
[2021-01-23 05:29] LABS: ALBUMIN 2.8 g/dL (3.4-5.0); CALCIUM 8.2 mg/dL (8.5-10.1); CREATININE 0.6 mg/dL (0.6-1.3); MAGNESIUM 2.1 mg/dL (1.8-2.4); POTASSIUM 3.7 mmol/L (3.5-5.1); TOTAL BILIRUBIN 0.6 mg/dL (<0.1-1.0); TOTAL PROTEIN 5.1 g/dL (6.4-8.2)
--- NOTE | 2021-01-23 12:20 | EKG ---
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1950 Requested By: Elise Agustin Order Number: [id number] Reading MD: Goldy Brown Measurements Intervals [place] Rate: 137 P: [place]: QRS: -38 QRSD: 89 T: 171 QT: 287 QTc: 434 Interpretive Statements Atrial fibrillation with a rapid ventricular response Abnormal R-wave progression, late transition Inferior infarct, old possible Repol abnrm suggests ischemia, diffuse leads Baseline wander in lead(s) I,II,aVR Compared to ECG 01/13/2021 09:34:15 Myocardial infarct finding now present Early repolarization now present Possible ischemia now present Sinus bradycardia no longer present Electronically Signed On 01-23-2021 12:20:03 CDT by Goldy Brown [email or web address] <ELECTRONICALLY SIGNED> By: Goldy Brown MD, [facility] 01/23/21 1220 16 16 Goldy Brown MD, [facility] /EPI
[2021-01-24] VITALS (11 sets, daily range): BP systolic 102–124; BP diastolic 52–72
[2021-01-24 05:23] LABS: HEMATOCRIT 28.2 % (37.0-47.0); HEMOGLOBIN 9.5 gm/dL (12.0-15.0); MCH 31.7 pg (26.0-34.0); MCHC 33.8 g/dL (28.0-37.0); MCV 93.9 fL (80.0-100.0); MPV 9.3 fl. (7.2-11.1); NUCLEATED RBCS 0 /100WBC; PLATELET COUNT* 188 thou/uL (150-400); RBC 3.01 mil/uL (4.20-5.00); RDW-CV 21.3 % (10.5-14.5); WBC 18.5 thou/uL (4.0-11.0)
[2021-01-24 05:42] LABS: ALBUMIN 2.9 g/dL (3.4-5.0); CALCIUM 8.3 mg/dL (8.5-10.1); CREATININE 0.6 mg/dL (0.6-1.3); PHOSPHORUS* 2.8 mg/dL (2.5-4.9); POTASSIUM 3.6 mmol/L (3.5-5.1); TOTAL BILIRUBIN 0.6 mg/dL (<0.1-1.0); TOTAL PROTEIN 5.3 g/dL (6.4-8.2)
[2021-01-24 07:20] LABS: ABSOLUTE LYMPHOCYTES 0.7 thou/uL (0.8-5.3); ABSOLUTE MONOCYTES 0.2 thou/uL (0.0-1.2); ABSOLUTE NEUTROPHILS 17.6 thou/uL (1.6-8.1); ATYPICAL LYMPHS 1 %; PLATELET ESTIMATE ADEQUATE
[2021-01-25] VITALS (23 sets, daily range): BP systolic 108–145; BP diastolic 60–88
[2021-01-25 04:34] LABS: ABSOLUTE LYMPHOCYTES 0.1 thou/uL (0.8-5.3); ABSOLUTE MONOCYTES 0.6 thou/uL (0.0-1.2); ABSOLUTE NEUTROPHILS 15.8 thou/uL (1.6-8.1); BASOPHILS 0.2 %; EOSINOPHILS 0.2 %; HEMATOCRIT 28.1 % (37.0-47.0); HEMOGLOBIN 9.5 gm/dL (12.0-15.0); LYMPHOCYTES 0.4 %; MCH 31.5 pg (26.0-34.0); MCHC 33.6 g/dL (28.0-37.0); MCV 93.9 fL (80.0-100.0); MONOCYTES 3.8 %; MPV 9.2 fl. (7.2-11.1); NUCLEATED RBCS 0 /100WBC; PLATELET COUNT* 180 thou/uL (150-400); POLYS 95.4 %; WBC 16.5 thou/uL (4.0-11.0)
[2021-01-25 04:59] LABS: ALBUMIN 2.8 g/dL (3.4-5.0); CALCIUM 8.3 mg/dL (8.5-10.1); CREATININE 0.6 mg/dL (0.6-1.3); MAGNESIUM 2.1 mg/dL (1.8-2.4); POTASSIUM 3.8 mmol/L (3.5-5.1); TOTAL BILIRUBIN 0.4 mg/dL (<0.1-1.0); TOTAL PROTEIN 5.3 g/dL (6.4-8.2)
[2021-01-26] VITALS (22 sets, daily range): BP systolic 100–143; BP diastolic 45–81
[2021-01-26 05:32] LABS: HEMATOCRIT 28.1 % (37.0-47.0); HEMOGLOBIN 9.5 gm/dL (12.0-15.0); MCH 32.1 pg (26.0-34.0); MCHC 33.9 g/dL (28.0-37.0); MCV 94.6 fL (80.0-100.0); MPV 8.6 fl. (7.2-11.1); RBC 2.97 mil/uL (4.20-5.00); RDW-CV 22.5 % (10.5-14.5)
[2021-01-26 05:56] LABS: CALCIUM 8.4 mg/dL (8.5-10.1); CREATININE 0.5 mg/dL (0.6-1.3); POTASSIUM 3.5 mmol/L (3.5-5.1)
[2021-01-27] VITALS (13 sets, daily range): BP systolic 107–124; BP diastolic 62–78
[2021-01-27 04:40] LABS: HEMATOCRIT 28.2 % (37.0-47.0); HEMOGLOBIN 9.6 gm/dL (12.0-15.0); MCH 32.4 pg (26.0-34.0); MCHC 34.1 g/dL (28.0-37.0); MPV 8.6 fl. (7.2-11.1); RBC 2.97 mil/uL (4.20-5.00); RDW-CV 22.7 % (10.5-14.5); WBC 18.9 thou/uL (4.0-11.0)
[2021-01-27 04:56] LABS: CALCIUM 8.5 mg/dL (8.5-10.1); CREATININE 0.7 mg/dL (0.6-1.3); POTASSIUM 3.5 mmol/L (3.5-5.1)
[2021-01-28 01:17] VITALS: BP 142/82
[2021-01-28 06:02] VITALS: BP 114/72
[2021-01-28 06:37] LABS: HEMATOCRIT 30.8 % (37.0-47.0); HEMOGLOBIN 10.4 gm/dL (12.0-15.0); MCHC 33.6 g/dL (28.0-37.0); MCV 95.1 fL (80.0-100.0); MPV 9.2 fl. (7.2-11.1); RBC 3.24 mil/uL (4.20-5.00); WBC 19.5 thou/uL (4.0-11.0)
[2021-01-28 06:45] LABS: CALCIUM 8.2 mg/dL (8.5-10.1); CREATININE 0.6 mg/dL (0.6-1.3); POTASSIUM 3.3 mmol/L (3.5-5.1)
[2021-01-28 08:30] VITALS: BP 106/65
[2021-01-28 20:00] VITALS: BP 109/64
[2021-01-28 20:26] LABS: BE -4.9 mmol/L (-2 to +3); PCO2 26.5 mmHg (35.0-45.0); pH 7.443 (7.340-7.450)
[2021-01-28 20:32] LABS: PO2 56.5 mmHg (75.0-100.0)
[2021-01-28 23:04] LABS: URINE BILIRUBIN NEGATIVE (Negative); URINE BLOOD 3+ (Negative); URINE COLOR YELLOW; URINE GLUCOSE-RANDOM NEGATIVE (Negative); URINE KETONES NEGATIVE (Negative); URINE LEUKOCYTES-REFLEX 3+ (Negative); URINE NITRITE-REFLEX POSITIVE (Negative); URINE PROTEIN 1+ (Negative); URINE UROBILINOGEN 0.2 E.U./dl (0.2-1.0)
[2021-01-28 23:11] LABS: URINE RBC >20 Many /HPF (0-2)
[2021-01-28 23:12] LABS: HYALINE CASTS 0-3 Few /LPF (None Seen); SQUAMOUS 0-3 Few /LPF (0-3); URINE WBC-REFLEX >25 Many /HPF (0-5); WBC CLUMPS Few (None Seen)
[2021-01-28 23:13] LABS: CRYSTALS None Seen /LPF (None Seen); MUCUS None Seen strn/LPF (None Seen)
[2021-01-28 23:14] LABS: URINE CLARITY HAZY
[2021-01-29] VITALS (21 sets, daily range): BP systolic 72–150; BP diastolic 33–92
[2021-01-29 06:14] LABS: ABSOLUTE BASOPHILS 0.1 thou/uL (0.0-0.2); ABSOLUTE LYMPHOCYTES 0.1 thou/uL (0.8-5.3); ABSOLUTE MONOCYTES 0.1 thou/uL (0.0-1.2); ABSOLUTE NEUTROPHILS 17.4 thou/uL (1.6-8.1); BASOPHILS 0.4 %; EOSINOPHILS 0.1 %; HEMATOCRIT 29.8 % (37.0-47.0); LYMPHOCYTES 0.4 %; MCH 32.3 pg (26.0-34.0); MCHC 33.6 g/dL (28.0-37.0); MONOCYTES 0.6 %; MPV 8.9 fl. (7.2-11.1); NUCLEATED RBCS 0 /100WBC; PLATELET COUNT* 154 thou/uL (150-400); POLYS 98.5 %; RBC 3.11 mil/uL (4.20-5.00); RDW-CV 23.4 % (10.5-14.5); WBC 17.7 thou/uL (4.0-11.0)
[2021-01-29 06:34] LABS: ALBUMIN 2.8 g/dL (3.4-5.0); CALCIUM 7.5 mg/dL (8.5-10.1); CREATININE 0.6 mg/dL (0.6-1.3); POTASSIUM 4.6 mmol/L (3.5-5.1); TOTAL BILIRUBIN 0.4 mg/dL (<0.1-1.0); TOTAL PROTEIN 5.1 g/dL (6.4-8.2)
[2021-01-29 08:24] LABS: PCO2 29.8 mmHg (35.0-45.0); pH 7.478 (7.340-7.450)
[2021-01-29 12:17] LABS: CALCIUM 8.5 mg/dL (8.5-10.1); CREATININE 0.9 mg/dL (0.6-1.3); POTASSIUM 3.7 mmol/L (3.5-5.1)
[2021-01-30] VITALS (54 sets, daily range): BP systolic 40–240; BP diastolic 24–142
[2021-01-30 05:17] LABS: HEMATOCRIT 29.8 % (37.0-47.0); HEMOGLOBIN 10.2 gm/dL (12.0-15.0); MCH 32.6 pg (26.0-34.0); MCHC 34.2 g/dL (28.0-37.0); MCV 95.3 fL (80.0-100.0); MPV 8.8 fl. (7.2-11.1); NUCLEATED RBCS 0 /100WBC; PLATELET COUNT* 137 thou/uL (150-400); RBC 3.12 mil/uL (4.20-5.00); RDW-CV 23.1 % (10.5-14.5); WBC 21.8 thou/uL (4.0-11.0)
[2021-01-30 05:34] LABS: ALBUMIN 2.6 g/dL (3.4-5.0); CALCIUM 8.4 mg/dL (8.5-10.1); CREATININE 0.8 mg/dL (0.6-1.3); MAGNESIUM 2.2 mg/dL (1.8-2.4); POTASSIUM 4.1 mmol/L (3.5-5.1); TOTAL BILIRUBIN 0.5 mg/dL (<0.1-1.0); TOTAL PROTEIN 5.1 g/dL (6.4-8.2)
[2021-01-30 06:09] LABS: ABSOLUTE LYMPHOCYTES 0.2 thou/uL (0.8-5.3); ABSOLUTE MONOCYTES 0.2 thou/uL (0.0-1.2); ABSOLUTE NEUTROPHILS 21.4 thou/uL (1.6-8.1); ANISOCYTOSIS 2+; PLATELET ESTIMATE ADEQUATE
[2021-01-30 14:30] LABS: BE -5.6 mmol/L (-2 to +3); PO2 63.9 mmHg (75.0-100.0)
[2021-01-30 14:33] LABS: PCO2 50.2 mmHg (35.0-45.0); pH 7.252 (7.340-7.450)
[2021-01-30 17:13] LABS: BE -9.4 mmol/L (-2 to +3); PCO2 39.5 mmHg (35.0-45.0); PO2 61.9 mmHg (75.0-100.0)
[2021-01-30 17:19] LABS: pH 7.254 (7.340-7.450)
[2021-01-30 18:39] LABS: CALCIUM 8.3 mg/dL (8.5-10.1); CREATININE 1.1 mg/dL (0.6-1.3); MAGNESIUM 2.4 mg/dL (1.8-2.4); POTASSIUM 3.4 mmol/L (3.5-5.1)
[2021-01-30 20:54] LABS: BE -3.3 mmol/L (-2 to +3); PCO2 35.1 mmHg (35.0-45.0); PO2 62.9 mmHg (75.0-100.0); pH 7.394 (7.340-7.450)
[2021-01-31] VITALS (40 sets, daily range): BP systolic 60–164; BP diastolic 24–82
[2021-01-31 00:27] LABS: HEMATOCRIT 15.3 % (37.0-47.0)
[2021-01-31 03:27] LABS: ABSOLUTE LYMPHOCYTES 0.2 thou/uL (0.8-5.3); ABSOLUTE MONOCYTES 0.7 thou/uL (0.0-1.2); ABSOLUTE NEUTROPHILS 34.2 thou/uL (1.6-8.1); BASOPHILS 0.1 %; HEMATOCRIT 28.5 % (37.0-47.0); LYMPHOCYTES 0.4 %; MCH 31.6 pg (26.0-34.0); MCHC 32.2 g/dL (28.0-37.0); MCV 98.3 fL (80.0-100.0); MONOCYTES 1.9 %; MPV 8.9 fl. (7.2-11.1); NUCLEATED RBCS 0 /100WBC; PLATELET COUNT* 192 thou/uL (150-400); POLYS 97.6 %; WBC 35.1 thou/uL (4.0-11.0)
[2021-01-31 03:33] LABS: HEMOGLOBIN 9.2 gm/dL (12.0-15.0); INR 1.1; PROTIME 11.8 Seconds (9.20-11.50)
[2021-01-31 03:35] LABS: ALBUMIN 2.2 g/dL (3.4-5.0); CALCIUM 6.9 mg/dL (8.5-10.1); CREATININE 1.1 mg/dL (0.6-1.3); MAGNESIUM 2.2 mg/dL (1.8-2.4); TOTAL BILIRUBIN 0.4 mg/dL (<0.1-1.0); TOTAL PROTEIN 4.4 g/dL (6.4-8.2)
[2021-01-31 03:36] LABS: POTASSIUM 5.4 mmol/L (3.5-5.1)
[2021-01-31 07:27] LABS: HEMATOCRIT 34.8 % (37.0-47.0); HEMOGLOBIN 11.4 gm/dL (12.0-15.0)
[2021-01-31 07:45] LABS: PCO2 41.1 mmHg (35.0-45.0); PO2 81.4 mmHg (75.0-100.0)
[2021-01-31 07:47] LABS: pH 7.132 (7.340-7.450)
[2021-01-31 09:33] LABS: BE -13.7 mmol/L (-2 to +3); PCO2 42.2 mmHg (35.0-45.0); PO2 81.2 mmHg (75.0-100.0)
[2021-01-31 09:35] LABS: pH 7.153 (7.340-7.450)
[2021-01-31 11:08] LABS: BE -7.9 mmol/L (-2 to +3); PCO2 47.5 mmHg (35.0-45.0); PO2 74.5 mmHg (75.0-100.0)
[2021-01-31 12:53] LABS: ABSOLUTE BASOPHILS 0.1 thou/uL (0.0-0.2); ABSOLUTE LYMPHOCYTES 0.1 thou/uL (0.8-5.3); ABSOLUTE MONOCYTES 0.3 thou/uL (0.0-1.2); BASOPHILS 0.4 %; HEMATOCRIT 25.3 % (37.0-47.0); LYMPHOCYTES 0.6 %; MCH 30.9 pg (26.0-34.0); MCHC 32.9 g/dL (28.0-37.0); MCV 93.7 fL (80.0-100.0); MONOCYTES 1.2 %; MPV 8.1 fl. (7.2-11.1); NUCLEATED RBCS 0 /100WBC; POLYS 97.8 %; RDW-CV 22.9 % (10.5-14.5); WBC 25.6 thou/uL (4.0-11.0)
[2021-01-31 12:55] LABS: CALCIUM 6.1 mg/dL (8.5-10.1); CREATININE 1.4 mg/dL (0.6-1.3); MAGNESIUM 1.8 mg/dL (1.8-2.4); POTASSIUM 4.6 mmol/L (3.5-5.1)
[2021-01-31 12:58] LABS: HEMOGLOBIN 8.3 gm/dL (12.0-15.0); PLATELET COUNT* 87 thou/uL (150-400)
[2021-01-31 13:39] LABS: HEMATOCRIT 25.7 % (37.0-47.0); HEMOGLOBIN 8.5 gm/dL (12.0-15.0); MCH 30.8 pg (26.0-34.0); MCHC 32.8 g/dL (28.0-37.0); MCV 93.8 fL (80.0-100.0); MPV 8.4 fl. (7.2-11.1); RBC 2.75 mil/uL (4.20-5.00); RDW-CV 22.5 % (10.5-14.5); WBC 25.6 thou/uL (4.0-11.0)
[2021-01-31 13:43] LABS: CALCIUM 6.7 mg/dL (8.5-10.1); CREATININE 1.3 mg/dL (0.6-1.3); POTASSIUM 4.7 mmol/L (3.5-5.1)
--- NOTE | 2021-01-31 13:51 | 2DMMODE ---
[place] [address] 2 D/M-MODE ECHOCARDIOGRAM Name: KATI YEE Room: [address] ADM IN .Dawn.#: [id number] Admission: 01/08/21 Attend Phys: Elise Agustin MD Discharge: Date of : 48 Date of Service: 01/31/21 1350 Report #: [id number] THIS REPORT FOR: cc: Maria Ramírez MD, Diane S. MD Blick,Florentino Jimenez MD [facility] ~ APPROVED REPORT Study performed: 01/31/2021 11:15:30 EXAM: Limited 2D Echocardiogram Patient Location: In-Patient Room #: 002 Status: routine BSA: 1.69 HR: 117 bpm BP: 84/45 mmHg Rhythm: NSR Other Information Study Quality: Technically Limited Technically limited study due to , inability to position patient, patient on ventilator, placement of bandaging. Indications Chemo re-assess LV function Left Ventricle The left ventricle is normal size. Endocardium not well visualized There is normal left ventricular wall thickness. The left ventricular systolic function is normal. The left ventricular ejection fraction is within the normal range. Right Ventricle The right ventricle is normal size. The right ventricular systolic function is normal. Atria The left atrium size is normal. The right atrium size is normal. Aortic Valve The aortic valve [place] [address] 2 D/M-MODE ECHOCARDIOGRAM Name: KATI YEE Room: [address] IN M.R.#: [id number] Admission: 01/08/21 Attend Phys: Elise Agustin MD Discharge: Date of : 48 Date of Service: 01/31/21 1350 Report #: [id number] Mitral Valve The mitral valve is normal in structure. Tricuspid Valve The tricuspid valve is normal in structure. Trace tricuspid regurgitation. Pulmonic Valve Pulmonic valve is not visualized. Great Vessels The aortic root is normal in size. IVC is normal in size and collapses >50% with inspiration. Pericardium There is no pericardial effusion. <Conclusion> The left ventricular systolic function is normal. The left ventricular ejection fraction is within the normal range. There is no pericardial effusion. <ELECTRONICALLY SIGNED> By: Florentino Smith MD, FACC 01/31/21 135 49 49 Florentino Smith MD, FACC /INF
[2021-01-31 19:46] LABS: ABSOLUTE BASOPHILS 0.1 thou/uL (0.0-0.2); ABSOLUTE LYMPHOCYTES 0.1 thou/uL (0.8-5.3); ABSOLUTE MONOCYTES 0.2 thou/uL (0.0-1.2); ABSOLUTE NEUTROPHILS 12.2 thou/uL (1.6-8.1); BASOPHILS 0.5 %; EOSINOPHILS 0.1 %; LYMPHOCYTES 0.5 %; MCH 31.7 pg (26.0-34.0); MCHC 34.4 g/dL (28.0-37.0); MONOCYTES 1.8 %; MPV 8.4 fl. (7.2-11.1); NUCLEATED RBCS 0 /100WBC; POLYS 97.1 %; RBC 1.84 mil/uL (4.20-5.00); RDW-CV 21.9 % (10.5-14.5); WBC 12.5 thou/uL (4.0-11.0)
[2021-01-31 19:50] LABS: HEMATOCRIT 16.9 % (37.0-47.0); HEMOGLOBIN 5.8 gm/dL (12.0-15.0); PLATELET COUNT* 39 thou/uL (150-400)
[2021-01-31 19:57] LABS: CALCIUM 6.7 mg/dL (8.5-10.1); CREATININE 1.1 mg/dL (0.6-1.3); MAGNESIUM 1.9 mg/dL (1.8-2.4); POTASSIUM 3.8 mmol/L (3.5-5.1)
[2021-01-31 20:01] LABS: INR 1.3; PROTIME 13.9 Seconds (9.20-11.50)
[2021-01-31 20:15] LABS: BE 2.9 mmol/L (-2 to +3); PCO2 39.6 mmHg (35.0-45.0); PO2 122.1 mmHg (75.0-100.0); pH 7.453 (7.340-7.450)
[2021-01-31 20:45] LABS: ABSOLUTE BASOPHILS 0.1 thou/uL (0.0-0.2); ABSOLUTE LYMPHOCYTES 0.1 thou/uL (0.8-5.3); ABSOLUTE MONOCYTES 0.3 thou/uL (0.0-1.2); ABSOLUTE NEUTROPHILS 11.8 thou/uL (1.6-8.1); BASOPHILS 0.8 %; LYMPHOCYTES 0.6 %; MCH 31.3 pg (26.0-34.0); MCHC 33.8 g/dL (28.0-37.0); MCV 92.4 fL (80.0-100.0); MONOCYTES 2.6 %; MPV 8.4 fl. (7.2-11.1); NUCLEATED RBCS 0 /100WBC; RBC 1.81 mil/uL (4.20-5.00); RDW-CV 21.9 % (10.5-14.5); WBC 12.2 thou/uL (4.0-11.0)
[2021-01-31 20:50] LABS: PLATELET COUNT* 38 thou/uL (150-400)
[2021-01-31 20:51] LABS: HEMATOCRIT 16.8 % (37.0-47.0); HEMOGLOBIN 5.7 gm/dL (12.0-15.0)
[2021-01-31 21:03] LABS: CREATININE 1.1 mg/dL (0.6-1.3); MAGNESIUM 1.9 mg/dL (1.8-2.4); PHOSPHORUS* 3.6 mg/dL (2.5-4.9); POTASSIUM 3.7 mmol/L (3.5-5.1)
[2021-01-31 21:35] LABS: APTT 31.3 Seconds (25.0-31.3)
[2021-02-01] VITALS (61 sets, daily range): BP systolic 98–151; BP diastolic 43–62
[2021-02-01 07:33] LABS: HEMATOCRIT 22.7 % (37.0-47.0); MCH 30.1 pg (26.0-34.0); MCV 88.6 fL (80.0-100.0); MPV 8.1 fl. (7.2-11.1); NUCLEATED RBCS 0 /100WBC; RBC 2.56 mil/uL (4.20-5.00); RDW-CV 17.9 % (10.5-14.5); WBC 11.8 thou/uL (4.0-11.0)
[2021-02-01 07:34] LABS: HEMOGLOBIN 7.7 gm/dL (12.0-15.0)
[2021-02-01 07:35] LABS: PLATELET COUNT* 45 thou/uL (150-400)
[2021-02-01 07:48] LABS: PHOSPHORUS* 3.5 mg/dL (2.5-4.9)
[2021-02-01 08:02] LABS: ABSOLUTE LYMPHOCYTES 0.4 thou/uL (0.8-5.3); ABSOLUTE MONOCYTES 0.2 thou/uL (0.0-1.2); ABSOLUTE NEUTROPHILS 11.2 thou/uL (1.6-8.1); PLATELET ESTIMATE DECREASED
[2021-02-01 08:03] LABS: ANISOCYTOSIS 1+
[2021-02-01 08:17] LABS: ALBUMIN 2.7 g/dL (3.4-5.0); CREATININE 0.6 mg/dL (0.6-1.3); MAGNESIUM 1.9 mg/dL (1.8-2.4); POTASSIUM 3.5 mmol/L (3.5-5.1); TOTAL BILIRUBIN 0.7 mg/dL (<0.1-1.0); TOTAL PROTEIN 4.1 g/dL (6.4-8.2)
[2021-02-01 08:59] LABS: BE 0.7 mmol/L (-2 to +3); PO2 70.9 mmHg (75.0-100.0)
[2021-02-01 09:00] LABS: PCO2 54.3 mmHg (35.0-45.0)
[2021-02-01 15:01] LABS: ABSOLUTE MONOCYTES 0.2 thou/uL (0.0-1.2); ABSOLUTE NEUTROPHILS 10.3 thou/uL (1.6-8.1); BASOPHILS 0.3 %; EOSINOPHILS 0.2 %; HEMATOCRIT 22.1 % (37.0-47.0); HEMOGLOBIN 7.8 gm/dL (12.0-15.0); LYMPHOCYTES 0.3 %; MCH 31.5 pg (26.0-34.0); MCHC 35.2 g/dL (28.0-37.0); MCV 89.4 fL (80.0-100.0); MONOCYTES 1.5 %; MPV 7.9 fl. (7.2-11.1); NUCLEATED RBCS 0 /100WBC; POLYS 97.7 %; RBC 2.47 mil/uL (4.20-5.00); WBC 10.6 thou/uL (4.0-11.0)
[2021-02-01 15:07] LABS: PLATELET COUNT* 33 thou/uL (150-400)
[2021-02-01 15:09] LABS: CALCIUM 7.6 mg/dL (8.5-10.1); CREATININE 0.5 mg/dL (0.6-1.3); MAGNESIUM 2.6 mg/dL (1.8-2.4); POTASSIUM 4.1 mmol/L (3.5-5.1)
[2021-02-01 15:14] LABS: APTT 26.6 Seconds (25.0-31.3); INR 1.1; PROTIME 11.4 Seconds (9.20-11.50)
[2021-02-01 16:43] LABS: BE 3.7 mmol/L (-2 to +3); pH 7.429 (7.340-7.450)
[2021-02-01 20:22] LABS: ABSOLUTE MONOCYTES 0.1 thou/uL (0.0-1.2); ABSOLUTE NEUTROPHILS 9.9 thou/uL (1.6-8.1); HEMOGLOBIN 7.6 gm/dL (12.0-15.0); LYMPHOCYTES 0.3 %; MPV 7.5 fl. (7.2-11.1); WBC 10.1 thou/uL (4.0-11.0)
[2021-02-01 20:23] LABS: BASOPHILS 0.2 %; HEMATOCRIT 21.6 % (37.0-47.0); MCH 31.5 pg (26.0-34.0); MCHC 35.1 g/dL (28.0-37.0); MCV 89.8 fL (80.0-100.0); MONOCYTES 1.3 %; NUCLEATED RBCS 0 /100WBC; PLATELET COUNT* 68 thou/uL (150-400); POLYS 98.2 %; RBC 2.41 mil/uL (4.20-5.00); RDW-CV 18.2 % (10.5-14.5)
[2021-02-01 23:09] LABS: URINE BILIRUBIN NEGATIVE (Negative); URINE BLOOD TRACE (Negative); URINE CLARITY CLEAR; URINE COLOR YELLOW; URINE GLUCOSE-RANDOM NEGATIVE (Negative); URINE KETONES NEGATIVE (Negative); URINE LEUKOCYTES-REFLEX NEGATIVE (Negative); URINE NITRITE-REFLEX NEGATIVE (Negative); URINE PROTEIN NEGATIVE (Negative); URINE SPECIFIC GRAVITY 1.025 (1.005-1.030); URINE UROBILINOGEN 0.2 E.U./dl (0.2-1.0)
[2021-02-02] VITALS (72 sets, daily range): BP systolic 130–300; BP diastolic 39–80
[2021-02-02 04:39] LABS: HEMATOCRIT 22.1 % (37.0-47.0); HEMOGLOBIN 7.6 gm/dL (12.0-15.0); MCH 30.6 pg (26.0-34.0); MCHC 34.4 g/dL (28.0-37.0); MPV 8.2 fl. (7.2-11.1); NUCLEATED RBCS 0 /100WBC; PLATELET COUNT* 57 thou/uL (150-400); RBC 2.48 mil/uL (4.20-5.00); RDW-CV 18.6 % (10.5-14.5); WBC 10.7 thou/uL (4.0-11.0)
[2021-02-02 04:50] LABS: ALBUMIN 2.9 g/dL (3.4-5.0); CREATININE 0.5 mg/dL (0.6-1.3); MAGNESIUM 2.2 mg/dL (1.8-2.4); POTASSIUM 3.7 mmol/L (3.5-5.1); TOTAL BILIRUBIN 0.4 mg/dL (<0.1-1.0); TOTAL PROTEIN 4.4 g/dL (6.4-8.2)
[2021-02-02 06:36] LABS: ABSOLUTE LYMPHOCYTES 0.1 thou/uL (0.8-5.3); ABSOLUTE NEUTROPHILS 10.6 thou/uL (1.6-8.1); HYPOCHROMASIA 2+; MICROCYTES Occasional; PLATELET ESTIMATE DECREASED
[2021-02-02 06:37] LABS: ANISOCYTOSIS Occasional
[2021-02-02 08:13] LABS: BE 4.8 mmol/L (-2 to +3); PCO2 47.7 mmHg (35.0-45.0); PO2 62.6 mmHg (75.0-100.0); pH 7.416 (7.340-7.450)
[2021-02-02 17:12] LABS: ABSOLUTE BASOPHILS 0.1 thou/uL (0.0-0.2); ABSOLUTE MONOCYTES 0.3 thou/uL (0.0-1.2); ABSOLUTE NEUTROPHILS 13.6 thou/uL (1.6-8.1); BASOPHILS 0.4 %; HEMATOCRIT 28.6 % (37.0-47.0); LYMPHOCYTES 0.1 %; MCH 31.1 pg (26.0-34.0); MCHC 34.9 g/dL (28.0-37.0); MONOCYTES 1.9 %; NUCLEATED RBCS 0 /100WBC; PLATELET COUNT* 50 thou/uL (150-400); POLYS 97.6 %; RBC 3.22 mil/uL (4.20-5.00); RDW-CV 17.2 % (10.5-14.5)
[2021-02-02 17:26] LABS: CALCIUM 8.2 mg/dL (8.5-10.1); CREATININE 0.5 mg/dL (0.6-1.3); POTASSIUM 3.9 mmol/L (3.5-5.1)
[2021-02-03] VITALS (62 sets, daily range): BP systolic 101–173; BP diastolic 36–60
[2021-02-03 03:45] LABS: ABSOLUTE MONOCYTES 0.3 thou/uL (0.0-1.2); ABSOLUTE NEUTROPHILS 12.4 thou/uL (1.6-8.1); BASOPHILS 0.3 %; HEMATOCRIT 28.9 % (37.0-47.0); LYMPHOCYTES 0.3 %; MCH 30.5 pg (26.0-34.0); MCHC 34.5 g/dL (28.0-37.0); MCV 88.3 fL (80.0-100.0); MONOCYTES 2.4 %; MPV 8.4 fl. (7.2-11.1); NUCLEATED RBCS 0 /100WBC; PLATELET COUNT* 50 thou/uL (150-400); RBC 3.27 mil/uL (4.20-5.00); RDW-CV 16.7 % (10.5-14.5); WBC 12.8 thou/uL (4.0-11.0)
[2021-02-03 04:07] LABS: ALBUMIN 2.8 g/dL (3.4-5.0); CALCIUM 8.4 mg/dL (8.5-10.1); CREATININE 0.7 mg/dL (0.6-1.3); POTASSIUM 4.1 mmol/L (3.5-5.1); TOTAL BILIRUBIN 0.5 mg/dL (<0.1-1.0); TOTAL PROTEIN 4.7 g/dL (6.4-8.2)
[2021-02-03 04:55] LABS: BE 4.2 mmol/L (-2 to +3); PCO2 31.8 mmHg (35.0-45.0); pH 7.539 (7.340-7.450)
[2021-02-04] VITALS (57 sets, daily range): BP systolic 88–162; BP diastolic 35–52
[2021-02-04 05:09] LABS: ABSOLUTE LYMPHOCYTES 0.1 thou/uL (0.8-5.3); ABSOLUTE MONOCYTES 0.4 thou/uL (0.0-1.2); ABSOLUTE NEUTROPHILS 13.3 thou/uL (1.6-8.1); BASOPHILS 0.1 %; EOSINOPHILS 0.1 %; HEMATOCRIT 30.8 % (37.0-47.0); HEMOGLOBIN 10.6 gm/dL (12.0-15.0); LYMPHOCYTES 0.4 %; MCH 31.1 pg (26.0-34.0); MCHC 34.6 g/dL (28.0-37.0); MCV 89.9 fL (80.0-100.0); MONOCYTES 2.9 %; MPV 9.3 fl. (7.2-11.1); NUCLEATED RBCS 0 /100WBC; POLYS 96.5 %; RBC 3.43 mil/uL (4.20-5.00); RDW-CV 17.3 % (10.5-14.5); WBC 13.7 thou/uL (4.0-11.0)
[2021-02-04 05:19] LABS: ALBUMIN 2.7 g/dL (3.4-5.0); CALCIUM 8.6 mg/dL (8.5-10.1); CREATININE 0.5 mg/dL (0.6-1.3); POTASSIUM 4.4 mmol/L (3.5-5.1); TOTAL BILIRUBIN 0.3 mg/dL (<0.1-1.0); TOTAL PROTEIN 4.7 g/dL (6.4-8.2)
[2021-02-04 05:21] LABS: LIPASE 143 U/L (73-393); TRIGLYCERIDE 211 mg/dL (<150)
[2021-02-04 05:42] LABS: PLATELET COUNT* 42 thou/uL (150-400)
[2021-02-04 12:16] LABS: BE 6.2 mmol/L (-2 to +3); PCO2 41.7 mmHg (35.0-45.0); PO2 64.8 mmHg (75.0-100.0); pH 7.479 (7.340-7.450)
[2021-02-05] VITALS (37 sets, daily range): BP systolic 96–135; BP diastolic 34–49
[2021-02-05 05:41] LABS: ABSOLUTE LYMPHOCYTES 0.1 thou/uL (0.8-5.3); ABSOLUTE MONOCYTES 0.4 thou/uL (0.0-1.2); ABSOLUTE NEUTROPHILS 13.6 thou/uL (1.6-8.1); BASOPHILS 0.3 %; HEMATOCRIT 33.4 % (37.0-47.0); HEMOGLOBIN 11.4 gm/dL (12.0-15.0); LYMPHOCYTES 0.4 %; MCH 31.2 pg (26.0-34.0); MCHC 34.1 g/dL (28.0-37.0); MCV 91.5 fL (80.0-100.0); MONOCYTES 3.2 %; MPV 9.2 fl. (7.2-11.1); NUCLEATED RBCS 0 /100WBC; POLYS 96.1 %; RBC 3.65 mil/uL (4.20-5.00); RDW-CV 17.5 % (10.5-14.5); WBC 14.1 thou/uL (4.0-11.0)
[2021-02-05 05:43] LABS: PLATELET COUNT* 42 thou/uL (150-400)
[2021-02-05 05:50] LABS: ALBUMIN 2.6 g/dL (3.4-5.0); ALKALINE PHOSPHATASE 130 U/L (46-116); ANION GAP < 0 mmol/L (7-16); BUN 32 mg/dL (7-18); CALCIUM 8.9 mg/dL (8.5-10.1); CHLORIDE 104 mmol/L (98-107); CO2 41 mmol/L (21-32); CREATININE 0.5 mg/dL (0.6-1.3); GLUCOSE 154 mg/dL (70-99); POTASSIUM 4.3 mmol/L (3.5-5.1); SGOT 22 U/L (15-37); SGPT 32 U/L (30-65); SODIUM 144 mmol/L (136-145); TOTAL BILIRUBIN 0.4 mg/dL (<0.1-1.0)
[2021-02-05 07:36] LABS: BE 11.8 mmol/L (-2 to +3); PO2 68.5 mmHg (75.0-100.0)
[2021-02-05 07:38] LABS: PCO2 57.2 mmHg (35.0-45.0)
--- NOTE | 2021-02-05 14:20 | EKG ---
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1950 Requested By: Andreea Granados Order Number: [id number] Reading MD: Goldy Brown Measurements Intervals [place] Rate: 64 P: 6 [place]: 146 QRS: -21 QRSD: 76 T: QT: 517 QTc: 534 Interpretive Statements Sinus rhythm Left atrial enlargement Probable LVH with secondary repol abnrm Inferior infarct, old Anterior Q waves, possibly due to LVH Prolonged QT interval Compared to ECG 01/22/2021 20:17:52 Atrial abnormality now present Left ventricular hypertrophy now present Atrial fibrillation has reverted to a sinus mechanism Nonspecific ST-T alterations have diminished Electronically Signed On 02-05-2021 14:19:53 CDT by Goldy Brown [email or web address] <ELECTRONICALLY SIGNED> By: Goldy Brown MD, [facility] 02/05/21 1419 1003 1003 Goldy Brown MD, [facility] /EPI
[2021-02-05 17:05] LABS: BE 12.6 mmol/L (-2 to +3); PO2 72.3 mmHg (75.0-100.0); pH 7.483 (7.340-7.450)
[2021-02-05 17:08] LABS: PCO2 51.5 mmHg (35.0-45.0)
[2021-02-05 18:31] LABS: CREATININE 0.5 mg/dL (0.6-1.3); MAGNESIUM 2.3 mg/dL (1.8-2.4); POTASSIUM 3.8 mmol/L (3.5-5.1)
[2021-02-06] VITALS (46 sets, daily range): BP systolic 98–162; BP diastolic 29–96
[2021-02-06 04:55] LABS: ABSOLUTE BASOPHILS 0.1 thou/uL (0.0-0.2); ABSOLUTE LYMPHOCYTES 0.1 thou/uL (0.8-5.3); ABSOLUTE MONOCYTES 0.3 thou/uL (0.0-1.2); ABSOLUTE NEUTROPHILS 13.8 thou/uL (1.6-8.1); BASOPHILS 0.5 %; EOSINOPHILS 0.1 %; HEMATOCRIT 30.6 % (37.0-47.0); HEMOGLOBIN 10.4 gm/dL (12.0-15.0); LYMPHOCYTES 0.6 %; MCH 31.5 pg (26.0-34.0); MCHC 34.1 g/dL (28.0-37.0); MCV 92.5 fL (80.0-100.0); MONOCYTES 2.3 %; MPV 9.4 fl. (7.2-11.1); NUCLEATED RBCS 0 /100WBC; POLYS 96.5 %; RDW-CV 18.5 % (10.5-14.5); WBC 14.3 thou/uL (4.0-11.0)
[2021-02-06 05:34] LABS: ALBUMIN 2.8 g/dL (3.4-5.0); CALCIUM 8.7 mg/dL (8.5-10.1); CREATININE 0.4 mg/dL (0.6-1.3); MAGNESIUM 2.3 mg/dL (1.8-2.4); TOTAL BILIRUBIN 0.4 mg/dL (<0.1-1.0)
[2021-02-06 05:43] LABS: PLATELET COUNT* 36 thou/uL (150-400)
[2021-02-06 08:13] LABS: BE 5.7 mmol/L (-2 to +3); PO2 71.6 mmHg (75.0-100.0); pH 7.448 (7.340-7.450)
[2021-02-07] VITALS (35 sets, daily range): BP systolic 104–162; BP diastolic 40–61
[2021-02-07 05:20] LABS: HEMATOCRIT 30.5 % (37.0-47.0); HEMOGLOBIN 10.2 gm/dL (12.0-15.0); MCH 31.3 pg (26.0-34.0); MCHC 33.6 g/dL (28.0-37.0); MCV 93.3 fL (80.0-100.0); MPV 9.1 fl. (7.2-11.1); NUCLEATED RBCS 0 /100WBC; RBC 3.27 mil/uL (4.20-5.00); RDW-CV 19.1 % (10.5-14.5); WBC 14.6 thou/uL (4.0-11.0)
[2021-02-07 05:34] LABS: PHOSPHORUS* 2.8 mg/dL (2.5-4.9)
[2021-02-07 05:37] LABS: ALBUMIN 2.9 g/dL (3.4-5.0); CALCIUM 8.5 mg/dL (8.5-10.1); CREATININE 0.5 mg/dL (0.6-1.3); MAGNESIUM 2.3 mg/dL (1.8-2.4); POTASSIUM 3.9 mmol/L (3.5-5.1); TOTAL BILIRUBIN 0.4 mg/dL (<0.1-1.0); TOTAL PROTEIN 5.2 g/dL (6.4-8.2)
[2021-02-07 05:43] LABS: PLATELET COUNT* 38 thou/uL (150-400)
[2021-02-07 07:22] LABS: ABSOLUTE LYMPHOCYTES 0.3 thou/uL (0.8-5.3); ABSOLUTE NEUTROPHILS 14.3 thou/uL (1.6-8.1); HYPOCHROMASIA 2+; PLATELET ESTIMATE INCREASED
[2021-02-07 07:23] LABS: ANISOCYTOSIS Occasional; MICROCYTES Occasional
[2021-02-07 08:15] LABS: BE 6.3 mmol/L (-2 to +3); PCO2 43.1 mmHg (35.0-45.0)
--- NOTE | 2021-02-07 16:45 | EKG ---
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1950 Requested By: Andreea Granados Order Number: [id number] Reading MD: Goldy Brown Measurements Intervals [place] Rate: 72 P: 25 SD: 148 QRS: -16 QRSD: 81 T: 244 QT: 345 QTc: 378 Interpretive Statements Sinus rhythm Left atrial enlargement Probable LVH with secondary repol abnrm Compared to ECG 02/05/2021 10:03:37 Myocardial infarct finding no longer present Nonspecific ST changes have occurred Prolonged QT interval no longer present Electronically Signed On 02-07-2021 16:45:50 CDT by Goldy Brown [email or web address] <ELECTRONICALLY SIGNED> By: Goldy Brown MD, [facility] 02/07/21 1645 4 4 Goldy Brown MD, [facility] /EPI
[2021-02-08] VITALS (24 sets, daily range): BP systolic 103–137; BP diastolic 37–52
[2021-02-08 06:06] LABS: ABSOLUTE LYMPHOCYTES 0.1 thou/uL (0.8-5.3); ABSOLUTE MONOCYTES 0.4 thou/uL (0.0-1.2); ABSOLUTE NEUTROPHILS 14.3 thou/uL (1.6-8.1); BASOPHILS 0.3 %; HEMATOCRIT 30.4 % (37.0-47.0); HEMOGLOBIN 10.3 gm/dL (12.0-15.0); LYMPHOCYTES 0.7 %; MCH 31.3 pg (26.0-34.0); MCHC 33.7 g/dL (28.0-37.0); MCV 92.8 fL (80.0-100.0); MONOCYTES 2.7 %; MPV 9.7 fl. (7.2-11.1); NUCLEATED RBCS 0 /100WBC; POLYS 96.3 %; RBC 3.28 mil/uL (4.20-5.00); RDW-CV 19.1 % (10.5-14.5); WBC 14.8 thou/uL (4.0-11.0)
[2021-02-08 06:21] LABS: PLATELET COUNT* 39 thou/uL (150-400)
[2021-02-08 06:31] LABS: PHOSPHORUS* 2.8 mg/dL (2.5-4.9)
[2021-02-08 06:53] LABS: ALBUMIN 2.5 g/dL (3.4-5.0); CALCIUM 8.4 mg/dL (8.5-10.1); CREATININE 0.5 mg/dL (0.6-1.3); MAGNESIUM 2.2 mg/dL (1.8-2.4); POTASSIUM 4.1 mmol/L (3.5-5.1); TOTAL BILIRUBIN 0.3 mg/dL (<0.1-1.0); TOTAL PROTEIN 4.8 g/dL (6.4-8.2)
[2021-02-08 08:13] LABS: BE 3.5 mmol/L (-2 to +3); PO2 71.2 mmHg (75.0-100.0); pH 7.457 (7.340-7.450)
[2021-02-09] VITALS (23 sets, daily range): BP systolic 96–141; BP diastolic 40–60
[2021-02-09 05:46] LABS: ABSOLUTE LYMPHOCYTES 0.1 thou/uL (0.8-5.3); ABSOLUTE MONOCYTES 0.4 thou/uL (0.0-1.2); ABSOLUTE NEUTROPHILS 14.5 thou/uL (1.6-8.1); BASOPHILS 0.1 %; HEMATOCRIT 30.2 % (37.0-47.0); HEMOGLOBIN 10.3 gm/dL (12.0-15.0); LYMPHOCYTES 0.9 %; MCH 31.5 pg (26.0-34.0); MCHC 34.1 g/dL (28.0-37.0); MCV 92.4 fL (80.0-100.0); MONOCYTES 2.9 %; MPV 9.7 fl. (7.2-11.1); NUCLEATED RBCS 0 /100WBC; POLYS 96.1 %; RBC 3.27 mil/uL (4.20-5.00); RDW-CV 19.7 % (10.5-14.5); WBC 15.1 thou/uL (4.0-11.0)
[2021-02-09 05:49] LABS: CALCIUM 8.1 mg/dL (8.5-10.1); CREATININE 0.4 mg/dL (0.6-1.3); POTASSIUM 4.3 mmol/L (3.5-5.1)
[2021-02-09 05:52] LABS: PLATELET COUNT* 41 thou/uL (150-400)
[2021-02-10] VITALS (25 sets, daily range): BP systolic 91–133; BP diastolic 33–52
[2021-02-10 04:28] LABS: ALBUMIN 2.1 g/dL (3.4-5.0); POTASSIUM 4.6 mmol/L (3.5-5.1); TOTAL BILIRUBIN 0.4 mg/dL (<0.1-1.0); TOTAL PROTEIN 4.6 g/dL (6.4-8.2)
[2021-02-10 05:15] LABS: ABSOLUTE LYMPHOCYTES 0.1 thou/uL (0.8-5.3); ABSOLUTE MONOCYTES 0.4 thou/uL (0.0-1.2); ABSOLUTE NEUTROPHILS 18.7 thou/uL (1.6-8.1); BASOPHILS 0.2 %; HEMATOCRIT 31.3 % (37.0-47.0); HEMOGLOBIN 10.4 gm/dL (12.0-15.0); LYMPHOCYTES 0.6 %; MCH 30.6 pg (26.0-34.0); MCHC 33.1 g/dL (28.0-37.0); MCV 92.5 fL (80.0-100.0); MPV 10.5 fl. (7.2-11.1); NUCLEATED RBCS 0 /100WBC; POLYS 97.2 %; RBC 3.38 mil/uL (4.20-5.00); RDW-CV 18.7 % (10.5-14.5); WBC 19.3 thou/uL (4.0-11.0)
[2021-02-10 05:47] LABS: PLATELET COUNT* 46 thou/uL (150-400)
[2021-02-10 05:59] LABS: CREATININE 0.4 mg/dL (0.6-1.3)
[2021-02-10 06:00] LABS: CALCIUM 8.2 mg/dL (8.5-10.1)
[2021-02-11] VITALS (16 sets, daily range): BP systolic 85–135; BP diastolic 41–54
[2021-02-11 03:35] LABS: HEMATOCRIT 31.6 % (37.0-47.0); HEMOGLOBIN 10.6 gm/dL (12.0-15.0); MCH 31.2 pg (26.0-34.0); MCHC 33.6 g/dL (28.0-37.0); MPV 10.2 fl. (7.2-11.1); NUCLEATED RBCS 0 /100WBC; PLATELET COUNT* 50 thou/uL (150-400); RDW-CV 19.3 % (10.5-14.5); WBC 16.9 thou/uL (4.0-11.0)
[2021-02-11 03:46] LABS: APTT 21.8 Seconds (25.0-31.3); PROTIME 10.2 Seconds (9.20-11.50)
[2021-02-11 03:47] LABS: ALBUMIN 2.7 g/dL (3.4-5.0); CALCIUM 8.6 mg/dL (8.5-10.1); CREATININE 0.4 mg/dL (0.6-1.3); MAGNESIUM 2.2 mg/dL (1.8-2.4); POTASSIUM 4.2 mmol/L (3.5-5.1); TOTAL BILIRUBIN 0.4 mg/dL (<0.1-1.0); TOTAL PROTEIN 4.9 g/dL (6.4-8.2)
[2021-02-11 05:28] LABS: ABSOLUTE LYMPHOCYTES 0.7 thou/uL (0.8-5.3); ABSOLUTE MONOCYTES 0.2 thou/uL (0.0-1.2); ABSOLUTE NEUTROPHILS 16.1 thou/uL (1.6-8.1); PLATELET ESTIMATE DECREASED
[2021-02-11 05:29] LABS: ANISOCYTOSIS 1+; POIKILOCYTOSIS 1+
[2021-02-11 11:41] LABS: BE 3.8 mmol/L (-2 to +3); PCO2 38.1 mmHg (35.0-45.0); PO2 61.4 mmHg (75.0-100.0); pH 7.476 (7.340-7.450)
[2021-02-12] VITALS (56 sets, daily range): BP systolic 83–147; BP diastolic 36–63
[2021-02-12 04:13] LABS: ABSOLUTE BASOPHILS 0.1 thou/uL (0.0-0.2); ABSOLUTE LYMPHOCYTES 0.1 thou/uL (0.8-5.3); ABSOLUTE MONOCYTES 0.2 thou/uL (0.0-1.2); ABSOLUTE NEUTROPHILS 12.7 thou/uL (1.6-8.1); BASOPHILS 0.4 %; HEMATOCRIT 30.6 % (37.0-47.0); HEMOGLOBIN 10.3 gm/dL (12.0-15.0); LYMPHOCYTES 0.8 %; MCH 31.2 pg (26.0-34.0); MCHC 33.5 g/dL (28.0-37.0); MCV 93.1 fL (80.0-100.0); MONOCYTES 1.5 %; MPV 10.3 fl. (7.2-11.1); NUCLEATED RBCS 0 /100WBC; PLATELET COUNT* 53 thou/uL (150-400); POLYS 97.3 %; RBC 3.29 mil/uL (4.20-5.00); RDW-CV 19.3 % (10.5-14.5); WBC 13.1 thou/uL (4.0-11.0)
[2021-02-12 04:43] LABS: ALBUMIN 2.2 g/dL (3.4-5.0); CALCIUM 8.3 mg/dL (8.5-10.1); CREATININE 0.3 mg/dL (0.6-1.3); MAGNESIUM 2.2 mg/dL (1.8-2.4); TOTAL BILIRUBIN 0.4 mg/dL (<0.1-1.0); TOTAL PROTEIN 4.6 g/dL (6.4-8.2)
[2021-02-13] VITALS (84 sets, daily range): BP systolic 82–141; BP diastolic 37–137
[2021-02-13 02:48] LABS: ABSOLUTE LYMPHOCYTES 0.1 thou/uL (0.8-5.3); ABSOLUTE MONOCYTES 0.2 thou/uL (0.0-1.2); ABSOLUTE NEUTROPHILS 14.1 thou/uL (1.6-8.1); BASOPHILS 0.3 %; EOSINOPHILS 0.1 %; HEMATOCRIT 29.2 % (37.0-47.0); HEMOGLOBIN 9.8 gm/dL (12.0-15.0); MCH 31.3 pg (26.0-34.0); MCHC 33.7 g/dL (28.0-37.0); MCV 92.9 fL (80.0-100.0); MONOCYTES 1.3 %; MPV 8.8 fl. (7.2-11.1); NUCLEATED RBCS 0 /100WBC; PLATELET COUNT* 110 thou/uL (150-400); POLYS 97.3 %; RBC 3.14 mil/uL (4.20-5.00); RDW-CV 19.3 % (10.5-14.5); WBC 14.5 thou/uL (4.0-11.0)
[2021-02-13 02:58] LABS: ALBUMIN 2.1 g/dL (3.4-5.0); CALCIUM 7.9 mg/dL (8.5-10.1); CREATININE 0.3 mg/dL (0.6-1.3); POTASSIUM 3.5 mmol/L (3.5-5.1); TOTAL BILIRUBIN 0.5 mg/dL (<0.1-1.0); TOTAL PROTEIN 4.7 g/dL (6.4-8.2)
--- NOTE | 2021-02-13 17:30 | OP ---
[address] [address] OPERATIVE REPORT Name: KATI YEE Room: [address] IN M.R.#: [id number] Admission: 01/08/21 Attend Phys: Elise Agustin MD Discharge: Date of : 48 Report #: [id number] THIS REPORT FOR: cc: Maria Ramírez MD, Diane S. MD Gazzetta, Joshua D. DO ~ DOC #: [id number] Tu Martinez DO DATE OF SURGERY: 02/12/2021 SURGEON: Tu Martinez DO FORENSIC COMPUTER EXAMINER: Dr. Alec Everett PREOPERATIVE DIAGNOSES: 1. Respiratory failure. 2. Malnutrition. POSTOPERATIVE DIAGNOSES: 1. Respiratory failure. 2. Malnutrition. PROCEDURES PERFORMED: EGD, percutaneous endoscopic gastrostomy tube, bronchoscopy and open tracheostomy. INDICATIONS: The patient is a 70-year-old female who has been requiring ventilator support secondary to COVID pneumonitis and subsequent pneumonia. Tracheostomy and PEG tube placement were indicated for chronic respiratory failure and malnutrition. The risks, benefits and alternatives to surgery were discussed with the patient's significant other and the patient's son. Risks of bleeding, infection, damage to nearby structures, and were described in detail. They voiced complete understanding and elected to proceed with surgery. OPERATIVE DESCRIPTION: The patient was taken to the operating theater and placed in the supine position. A shoulder roll was placed, bilateral SCDs were placed and preoperative antibiotics had been given. General anesthesia was induced without complication. Timeout was performed and all were in agreement. Platelets were hung and given for the case due to thrombocytopenia. We began by marking the neck. We marked the sternal notch and the cricoid cartilage. Two fingerbreadths above the sternal notch, we made a 3 cm horizontal incision. Dissection was carried down through the dermis using electrocautery. Dissection was carried through the subcutaneous fat and platysma using electrocautery. A Weitlaner was placed to help with retraction. The platysma was incised in a horizontal fashion. Next, the strap muscles were encountered. The midline raphe was incised and the [place] [address] OPERATIVE REPORT Name: KATI YEE Room: [address]#: [id number] Admission: 01/08/21 Attend Phys: Elise Agustin MD Discharge: Date of : 48 Report #: [id number] laterally exposing the pretracheal fascia and thyroid isthmus. The thyroid isthmus was grasped on both sides and bipolar diathermy was used to transect the thyroid isthmus. We then cleared off the pretracheal fascia using a peanut. The cricoid cartilage could be easily palpated and the tracheal rings could be visualized. At this point, the anesthesiologist deflated the endotracheal tube balloon. A cricoid hook was used to grasp the cricoid cartilage and elevate the trachea into the surgical field. An 11 blade scalpel was used to make a transverse incision inferior to the third tracheal ring. A trach mixer operator helper hot metal was used to increase the tracheotomy opening. The anesthesiologist withdrew the endotracheal tube. We were able to visualize this. He withdrew it to just above the tracheotomy. An #8 Shiley cuffed trach was then placed into the trachea under direct visualization. The balloon to the trach was insufflated, the innercannula was placed and the ventilator tubing was attached. There was a return of end tidal CO2 with appropriate volumes. Next, the trach was sutured into place using 4 0 Prolene sutures and a trach tie was placed around the patient's neck. This concluded the tracheostomy portion of the surgery. A bronch was placed within the trachea and the trach was above the marcelino; both the right and left bronchus could be visualized. Next, an EGD was performed. A bite block was placed in the patient's mouth. The endoscope was advanced through the oropharynx into the esophagus without difficulty. The endoscope was advanced into the stomach and stomach was insufflated. There was significant gastritis. The scope was then advanced through the pylorus into the first portion of the duodenum where a small nonbleeding ulcer was appreciated. There was not a visible vessel. Next, the scope was advanced into the second portion of the duodenum and no ulcers were appreciated in the second portion of the duodenum. The scope was withdrawn and the stomach was insufflated. Externally a light reflex could be appreciated. There was good 1:1 motion. The finder needle was placed through the anterior abdominal wall 3 fingerbreadths below the left costal margin to the left of midline. This is seen to enter the stomach. The needle was withdrawn. At this point, the catheter fell out of the stomach and could not be seen. The stomach was reinsufflated. Good light reflex was appreciated again. 1:1 motion was appreciated. The finder needle was readvanced and was seen entering the stomach. The needle was withdrawn. A wire was placed through the catheter and grasped with the endoscopic device. The wire was then pulled through the patient's anterior abdominal wall into the stomach through and out the patient's mouth with the endoscope. The gastrostomy tube was then secured to the wire and the wire was pulled from the anterior abdominal wall, pulling the gastrostomy tube through the patient's oropharynx, esophagus, and into the stomach. It was pulled up against the anterior abdominal wall. It was approximately 2.5 cm at the skin. An endoscope was readvanced into the oropharynx, esophagus, and into the stomach. The gastrostomy tube could be seen within [place] [address] OPERATIVE REPORT Name: KATI YEE Room: [address] IN [facility].#: [id number] Admission: 01/08/21 Attend Phys: Elise Agustin MD Discharge: Date of : 48 Report #: [id number] was able to be twisted easily. The endoscope was withdrawn and the stomach was desufflated. Next, the gastrostomy tube was fashioned, it was sutured in place using 3 sutures to the bumper to the anterior abdominal wall using 0 Prolene in a simple interrupted fashion. This concluded the gastrostomy portion of the procedure. The patient tolerated the procedure well. Everything was concluded. All sponge, needle and instrument counts were correct x 2. COMPLICATIONS: None. FINDINGS: Gastrostomy tube placed at 2.5 cm at the skin. #8 Shiley cuffed trach placed in the third tracheal space. ESTIMATED BLOOD LOSS: 5 mL. ANESTHESIA: General endotracheal anesthesia. IMPLANTS: 24 [place] gastrostomy tube and #8 Shiley tracheostomy tube, cuffed, nonfenestrated DISPOSITION: The patient was taken to the ICU in stable condition. DO NICKO Domínguez/NASEEM <ELECTRONICALLY SIGNED> By: Tu Martinez DO 02/13/21 1730 1023 [id number] Martinez DO /nt
[2021-02-14] VITALS (68 sets, daily range): BP systolic 62–135; BP diastolic 25–86
[2021-02-14 05:29] LABS: ABSOLUTE BASOPHILS 0.1 thou/uL (0.0-0.2); ABSOLUTE LYMPHOCYTES 0.1 thou/uL (0.8-5.3); ABSOLUTE MONOCYTES 0.1 thou/uL (0.0-1.2); ABSOLUTE NEUTROPHILS 10.7 thou/uL (1.6-8.1); BASOPHILS 1.1 %; EOSINOPHILS 0.2 %; HEMATOCRIT 29.4 % (37.0-47.0); MCH 31.1 pg (26.0-34.0); MCHC 33.8 g/dL (28.0-37.0); MONOCYTES 1.3 %; MPV 8.5 fl. (7.2-11.1); NUCLEATED RBCS 0 /100WBC; PLATELET COUNT* 104 thou/uL (150-400); POLYS 96.4 %; RDW-CV 18.6 % (10.5-14.5); WBC 11.1 thou/uL (4.0-11.0)
[2021-02-14 05:44] LABS: ALBUMIN 1.4 g/dL (3.4-5.0); CALCIUM 7.8 mg/dL (8.5-10.1); CREATININE 0.3 mg/dL (0.6-1.3); MAGNESIUM 1.9 mg/dL (1.8-2.4); POTASSIUM 3.4 mmol/L (3.5-5.1); TOTAL BILIRUBIN 0.4 mg/dL (<0.1-1.0); TOTAL PROTEIN 4.6 g/dL (6.4-8.2)
[2021-02-14 11:44] LABS: BE 1.9 mmol/L (-2 to +3); PCO2 29.3 mmHg (35.0-45.0)
[2021-02-14 11:46] LABS: PO2 58.6 mmHg (75.0-100.0)
[2021-02-14 14:07] LABS: HEMATOCRIT 33.8 % (37.0-47.0); HEMOGLOBIN 11.5 gm/dL (12.0-15.0); MCH 31.2 pg (26.0-34.0); MCHC 34.1 g/dL (28.0-37.0); MCV 91.6 fL (80.0-100.0); MPV 8.9 fl. (7.2-11.1); NUCLEATED RBCS 0 /100WBC; PLATELET COUNT* 132 thou/uL (150-400); RDW-CV 18.5 % (10.5-14.5); WBC 14.6 thou/uL (4.0-11.0)
[2021-02-14 14:14] LABS: ALBUMIN 2.2 g/dL (3.4-5.0); CALCIUM 8.5 mg/dL (8.5-10.1); CREATININE 0.6 mg/dL (0.6-1.3); POTASSIUM 4.2 mmol/L (3.5-5.1); TOTAL BILIRUBIN 0.2 mg/dL (<0.1-1.0); TOTAL PROTEIN 5.5 g/dL (6.4-8.2)
[2021-02-14 14:28] LABS: ABSOLUTE LYMPHOCYTES 0.1 thou/uL (0.8-5.3); ABSOLUTE NEUTROPHILS 14.5 thou/uL (1.6-8.1)
[2021-02-14 14:29] LABS: ANISOCYTOSIS Occasional; MICROCYTES Occasional; PLATELET ESTIMATE DECREASED
[2021-02-14 18:20] LABS: BE 3.8 mmol/L (-2 to +3); PCO2 32.9 mmHg (35.0-45.0); pH 7.523 (7.340-7.450)
[2021-02-14 18:24] LABS: PO2 132.3 mmHg (75.0-100.0)
[2021-02-15] VITALS (64 sets, daily range): BP systolic 86–170; BP diastolic 38–69
[2021-02-15 05:19] LABS: ABSOLUTE EOSINOPHILS 0.1 thou/uL (0.0-0.7); ABSOLUTE LYMPHOCYTES 0.1 thou/uL (0.8-5.3); ABSOLUTE MONOCYTES 0.1 thou/uL (0.0-1.2); ABSOLUTE NEUTROPHILS 8.1 thou/uL (1.6-8.1); BASOPHILS 0.4 %; EOSINOPHILS 0.6 %; HEMATOCRIT 25.5 % (37.0-47.0); LYMPHOCYTES 1.2 %; MCH 31.6 pg (26.0-34.0); MCHC 34.7 g/dL (28.0-37.0); MCV 90.9 fL (80.0-100.0); MONOCYTES 1.2 %; MPV 8.6 fl. (7.2-11.1); NUCLEATED RBCS 0 /100WBC; PLATELET COUNT* 88 thou/uL (150-400); POLYS 96.6 %; RBC 2.81 mil/uL (4.20-5.00); RDW-CV 18.9 % (10.5-14.5); WBC 8.4 thou/uL (4.0-11.0)
[2021-02-15 05:35] LABS: ALBUMIN 2.1 g/dL (3.4-5.0); CALCIUM 7.9 mg/dL (8.5-10.1); CREATININE 0.3 mg/dL (0.6-1.3); MAGNESIUM 1.7 mg/dL (1.8-2.4); POTASSIUM 3.4 mmol/L (3.5-5.1); TOTAL BILIRUBIN 0.3 mg/dL (<0.1-1.0); TOTAL PROTEIN 4.7 g/dL (6.4-8.2)
[2021-02-15 06:03] LABS: HEMOGLOBIN 8.9 gm/dL (12.0-15.0)
[2021-02-15 09:15] LABS: BE 4.7 mmol/L (-2 to +3); pH 7.506 (7.340-7.450)
[2021-02-15 09:18] LABS: PO2 50.8 mmHg (75.0-100.0)
[2021-02-15 13:22] LABS: ABSOLUTE LYMPHOCYTES 0.1 thou/uL (0.8-5.3); ABSOLUTE MONOCYTES 0.1 thou/uL (0.0-1.2); ABSOLUTE NEUTROPHILS 7.9 thou/uL (1.6-8.1); BASOPHILS 0.2 %; EOSINOPHILS 0.1 %; HEMATOCRIT 26.3 % (37.0-47.0); LYMPHOCYTES 0.6 %; MCH 31.5 pg (26.0-34.0); MCHC 34.1 g/dL (28.0-37.0); MCV 92.2 fL (80.0-100.0); MONOCYTES 0.8 %; MPV 9.2 fl. (7.2-11.1); NUCLEATED RBCS 0 /100WBC; PLATELET COUNT* 89 thou/uL (150-400); POLYS 98.3 %; RBC 2.86 mil/uL (4.20-5.00); RDW-CV 18.9 % (10.5-14.5); WBC 8.1 thou/uL (4.0-11.0)
[2021-02-15 13:35] LABS: MAGNESIUM 2.4 mg/dL (1.8-2.4); POTASSIUM 5.2 mmol/L (3.5-5.1)
[2021-02-16] VITALS (71 sets, daily range): BP systolic 94–233; BP diastolic 41–99
[2021-02-16 05:27] LABS: BE 0.8 mmol/L (-2 to +3); PCO2 29.3 mmHg (35.0-45.0); pH 7.518 (7.340-7.450)
[2021-02-16 05:29] LABS: PO2 58.5 mmHg (75.0-100.0)
[2021-02-16 06:08] LABS: HEMATOCRIT 33.2 % (37.0-47.0); MCH 31.1 pg (26.0-34.0); MCHC 33.6 g/dL (28.0-37.0); MCV 92.5 fL (80.0-100.0); RBC 3.59 mil/uL (4.20-5.00)
[2021-02-16 06:13] LABS: CALCIUM 8.1 mg/dL (8.5-10.1); CREATININE 0.3 mg/dL (0.6-1.3); MAGNESIUM 1.9 mg/dL (1.8-2.4); PHOSPHORUS* 1.5 mg/dL (2.5-4.9)
[2021-02-16 06:22] LABS: POTASSIUM 4.2 mmol/L (3.5-5.1)
[2021-02-16 06:26] LABS: HEMOGLOBIN 11.2 gm/dL (12.0-15.0)
[2021-02-17] VITALS (31 sets, daily range): BP systolic 80–202; BP diastolic 38–113
[2021-02-17 05:29] LABS: HEMATOCRIT 27.2 % (37.0-47.0); HEMOGLOBIN 9.4 gm/dL (12.0-15.0); MCH 31.8 pg (26.0-34.0); MCHC 34.5 g/dL (28.0-37.0); MCV 92.1 fL (80.0-100.0); MPV 9.1 fl. (7.2-11.1); NUCLEATED RBCS 0 /100WBC; PLATELET COUNT* 93 thou/uL (150-400); RBC 2.95 mil/uL (4.20-5.00); RDW-CV 19.2 % (10.5-14.5); WBC 7.1 thou/uL (4.0-11.0)
[2021-02-17 05:42] LABS: ALBUMIN 1.8 g/dL (3.4-5.0); CALCIUM 8.2 mg/dL (8.5-10.1); CREATININE 0.3 mg/dL (0.6-1.3); POTASSIUM 4.4 mmol/L (3.5-5.1); TOTAL BILIRUBIN 0.1 mg/dL (<0.1-1.0); TOTAL PROTEIN 4.8 g/dL (6.4-8.2)
[2021-02-17 05:47] LABS: MAGNESIUM 1.8 mg/dL (1.8-2.4); PHOSPHORUS* 2.4 mg/dL (2.5-4.9)
[2021-02-17 06:10] LABS: BE 2.8 mmol/L (-2 to +3); pH 7.506 (7.340-7.450)
[2021-02-17 06:12] LABS: PO2 58.8 mmHg (75.0-100.0)
[2021-02-17 08:11] LABS: ABSOLUTE LYMPHOCYTES 0.1 thou/uL (0.8-5.3)
[2021-02-17 08:12] LABS: ANISOCYTOSIS Occasional; HYPOCHROMASIA 1+; MICROCYTES Occasional; PLATELET ESTIMATE DECREASED
[2021-02-17 12:03] LABS: BE -1.3 mmol/L (-2 to +3); PO2 65.7 mmHg (75.0-100.0); pH 7.401 (7.340-7.450)
--- NOTE | 2021-02-17 13:16 | EKG ---
[place] [address] ELECTROCARDIOGRAM REPORT Name: HANKDOMINIKJULIAKATI J Room: [address] IN M.R.#: [id number] Admission: 01/08/21 Attend Phys: Elise Agustin MD Discharge: Date of : 48 Date of Service: 02/15/21613 Report #: [id number] THIS REPORT FOR: //name// [facility] Test Date: 2021-02-15 Test Time: 06:14:55 Pat Name: KATI YEE Department: Room: [address] Gender: F Patient Care Provider: CARLOS : 1950 Requested By: Elise Agustin Order Number: [id number] Reading MD: Goldy Brown Measurements Intervals [place] Rate: 68 P: 27 [place]: 159 QRS: -14 QRSD: 83 T: QT: 432 QTc: 460 Interpretive Statements Sinus rhythm Possible left atrial enlargement Diffuse nonspecific ST-T abnormalities Compared to ECG 02/07/2021 09:25:[address] segment depression has diminished Electronically Signed On 02-17-2021 13:15:51 CDT by Goldy Brown [email or web address] <ELECTRONICALLY SIGNED> By: Goldy Brown MD, [facility] 02/17/21 1315 Goldy Brown MD, [facility] /EPI
[2021-02-18] VITALS (30 sets, daily range): BP systolic 104–196; BP diastolic 42–85
[2021-02-18 05:26] LABS: ABSOLUTE EOSINOPHILS 0.1 thou/uL (0.0-0.7); ABSOLUTE LYMPHOCYTES 0.1 thou/uL (0.8-5.3); ABSOLUTE MONOCYTES 0.1 thou/uL (0.0-1.2); ABSOLUTE NEUTROPHILS 6.7 thou/uL (1.6-8.1); BASOPHILS 0.1 %; EOSINOPHILS 0.8 %; HEMATOCRIT 27.8 % (37.0-47.0); HEMOGLOBIN 9.6 gm/dL (12.0-15.0); LYMPHOCYTES 1.7 %; MCH 31.3 pg (26.0-34.0); MCHC 34.5 g/dL (28.0-37.0); MCV 90.6 fL (80.0-100.0); MONOCYTES 1.7 %; MPV 9.3 fl. (7.2-11.1); NUCLEATED RBCS 0 /100WBC; PLATELET COUNT* 78 thou/uL (150-400); POLYS 95.7 %; RBC 3.07 mil/uL (4.20-5.00); RDW-CV 18.8 % (10.5-14.5)
[2021-02-18 05:40] LABS: ALBUMIN 2.3 g/dL (3.4-5.0); CALCIUM 8.2 mg/dL (8.5-10.1); CREATININE 0.4 mg/dL (0.6-1.3); POTASSIUM 3.5 mmol/L (3.5-5.1); TOTAL BILIRUBIN 0.2 mg/dL (<0.1-1.0); TOTAL PROTEIN 5.1 g/dL (6.4-8.2)
[2021-02-18 11:54] LABS: BE -0.1 mmol/L (-2 to +3); PCO2 28.1 mmHg (35.0-45.0); PO2 63.7 mmHg (75.0-100.0); pH 7.514 (7.340-7.450)
[2021-02-19] VITALS (38 sets, daily range): BP systolic 76–159; BP diastolic 43–90
[2021-02-19 04:48] LABS: ABSOLUTE EOSINOPHILS 0.1 thou/uL (0.0-0.7); ABSOLUTE LYMPHOCYTES 0.2 thou/uL (0.8-5.3); ABSOLUTE MONOCYTES 0.1 thou/uL (0.0-1.2); ABSOLUTE NEUTROPHILS 7.3 thou/uL (1.6-8.1); BASOPHILS 0.1 %; EOSINOPHILS 0.9 %; HEMATOCRIT 30.9 % (37.0-47.0); HEMOGLOBIN 10.6 gm/dL (12.0-15.0); MCHC 34.4 g/dL (28.0-37.0); MCV 90.2 fL (80.0-100.0); MONOCYTES 1.9 %; MPV 9.2 fl. (7.2-11.1); NUCLEATED RBCS 0 /100WBC; PLATELET COUNT* 106 thou/uL (150-400); POLYS 95.1 %; RBC 3.42 mil/uL (4.20-5.00); WBC 7.7 thou/uL (4.0-11.0)
[2021-02-19 05:35] LABS: ALBUMIN 2.4 g/dL (3.4-5.0); CALCIUM 8.7 mg/dL (8.5-10.1); CREATININE 0.4 mg/dL (0.6-1.3); PHOSPHORUS* 3.3 mg/dL (2.5-4.9); POTASSIUM 4.5 mmol/L (3.5-5.1); TOTAL BILIRUBIN 0.3 mg/dL (<0.1-1.0); TOTAL PROTEIN 5.7 g/dL (6.4-8.2)
[2021-02-20] VITALS (32 sets, daily range): BP systolic 73–140; BP diastolic 39–81
[2021-02-20 07:53] LABS: ABSOLUTE LYMPHOCYTES 0.1 thou/uL (0.8-5.3); ABSOLUTE MONOCYTES 0.1 thou/uL (0.0-1.2); ABSOLUTE NEUTROPHILS 7.7 thou/uL (1.6-8.1); BASOPHILS 0.3 %; HEMATOCRIT 28.6 % (37.0-47.0); HEMOGLOBIN 10.1 gm/dL (12.0-15.0); LYMPHOCYTES 1.1 %; MCHC 35.4 g/dL (28.0-37.0); MCV 90.5 fL (80.0-100.0); MONOCYTES 1.7 %; MPV 9.6 fl. (7.2-11.1); NUCLEATED RBCS 0 /100WBC; PLATELET COUNT* 86 thou/uL (150-400); POLYS 96.9 %; RBC 3.17 mil/uL (4.20-5.00); RDW-CV 18.3 % (10.5-14.5); WBC 7.9 thou/uL (4.0-11.0)
[2021-02-20 09:05] LABS: CREATININE 0.4 mg/dL (0.6-1.3); POTASSIUM 4.2 mmol/L (3.5-5.1)
[2021-02-20 09:06] LABS: ALBUMIN 2.2 g/dL (3.4-5.0); CALCIUM 8.7 mg/dL (8.5-10.1); TOTAL BILIRUBIN 0.3 mg/dL (<0.1-1.0); TOTAL PROTEIN 5.8 g/dL (6.4-8.2)
[2021-02-21] VITALS (52 sets, daily range): BP systolic 72–142; BP diastolic 40–93
[2021-02-21 05:07] LABS: HEMATOCRIT 24.2 % (37.0-47.0); HEMOGLOBIN 8.5 gm/dL (12.0-15.0); MCH 31.7 pg (26.0-34.0); MCV 90.6 fL (80.0-100.0); MPV 9.7 fl. (7.2-11.1); RBC 2.68 mil/uL (4.20-5.00); RDW-CV 18.8 % (10.5-14.5); WBC 6.4 thou/uL (4.0-11.0)
[2021-02-21 05:27] LABS: CALCIUM 8.7 mg/dL (8.5-10.1); CREATININE 0.4 mg/dL (0.6-1.3); POTASSIUM 3.9 mmol/L (3.5-5.1)
[2021-02-22] VITALS (74 sets, daily range): BP systolic 80–152; BP diastolic 44–79
[2021-02-22 05:42] LABS: MCH 31.6 pg (26.0-34.0); MCHC 34.6 g/dL (28.0-37.0); MCV 91.3 fL (80.0-100.0); MPV 9.8 fl. (7.2-11.1); RBC 2.84 mil/uL (4.20-5.00); RDW-CV 18.9 % (10.5-14.5); WBC 12.3 thou/uL (4.0-11.0)
[2021-02-22 05:52] LABS: CALCIUM 8.8 mg/dL (8.5-10.1); CREATININE 0.5 mg/dL (0.6-1.3); POTASSIUM 4.6 mmol/L (3.5-5.1)
[2021-02-23] VITALS (29 sets, daily range): BP systolic 78–126; BP diastolic 47–70
[2021-02-23 05:28] LABS: HEMOGLOBIN 7.7 gm/dL (12.0-15.0); MCH 31.7 pg (26.0-34.0); MCHC 35.1 g/dL (28.0-37.0); MCV 90.4 fL (80.0-100.0); MPV 9.1 fl. (7.2-11.1); RBC 2.43 mil/uL (4.20-5.00); WBC 9.2 thou/uL (4.0-11.0)
[2021-02-23 05:48] LABS: CALCIUM 8.5 mg/dL (8.5-10.1); CREATININE 0.5 mg/dL (0.6-1.3); POTASSIUM 3.8 mmol/L (3.5-5.1)
[2021-02-23 17:20] LABS: HEMATOCRIT 24.8 % (37.0-47.0); HEMOGLOBIN 8.6 gm/dL (12.0-15.0); MCH 31.6 pg (26.0-34.0); MCHC 34.7 g/dL (28.0-37.0); MCV 91.2 fL (80.0-100.0); MPV 9.4 fl. (7.2-11.1); NUCLEATED RBCS 0 /100WBC; PLATELET COUNT* 113 thou/uL (150-400); RBC 2.72 mil/uL (4.20-5.00); RDW-CV 19.1 % (10.5-14.5); WBC 10.9 thou/uL (4.0-11.0)
[2021-02-23 17:39] LABS: ABSOLUTE EOSINOPHILS 0.1 thou/uL (0.0-0.7); ABSOLUTE LYMPHOCYTES 0.2 thou/uL (0.8-5.3); ABSOLUTE MONOCYTES 0.7 thou/uL (0.0-1.2); ABSOLUTE NEUTROPHILS 9.9 thou/uL (1.6-8.1); MYELOCYTES 1 %
[2021-02-23 17:40] LABS: PLATELET ESTIMATE DECREASED
[2021-02-24] VITALS (74 sets, daily range): BP systolic 73–133; BP diastolic 19–80
[2021-02-24 05:35] LABS: ABSOLUTE LYMPHOCYTES 0.2 thou/uL (0.8-5.3); ABSOLUTE MONOCYTES 0.2 thou/uL (0.0-1.2); ABSOLUTE NEUTROPHILS 9.6 thou/uL (1.6-8.1); BASOPHILS 0.1 %; EOSINOPHILS 0.3 %; HEMATOCRIT 25.4 % (37.0-47.0); HEMOGLOBIN 8.8 gm/dL (12.0-15.0); LYMPHOCYTES 2.3 %; MCH 31.7 pg (26.0-34.0); MCHC 34.8 g/dL (28.0-37.0); MCV 91.2 fL (80.0-100.0); MONOCYTES 2.3 %; MPV 9.6 fl. (7.2-11.1); NUCLEATED RBCS 0 /100WBC; PLATELET COUNT* 110 thou/uL (150-400); RBC 2.79 mil/uL (4.20-5.00); RDW-CV 18.9 % (10.5-14.5); WBC 10.1 thou/uL (4.0-11.0)
[2021-02-24 05:40] LABS: CALCIUM 8.5 mg/dL (8.5-10.1); CREATININE 0.4 mg/dL (0.6-1.3); MAGNESIUM 2.2 mg/dL (1.8-2.4)
[2021-02-24 12:45] LABS: BE -2.8 mmol/L (-2 to +3); PCO2 VENOUS 35.5 mmHg (41.0-51.0); PO2 VENOUS 33.7 mmHg (35.0-45.0)
--- NOTE | 2021-02-24 15:56 | 2DMMODE ---
[place] [address] 2 D/M-MODE ECHOCARDIOGRAM Name: KATI YEE Room: [address] ADM IN [place]len[place].Dawn.#: [id number] Admission: 01/08/21 Attend Phys: Elise Agustin MD Discharge: Date of : 48 Date of Service: 02/24/21 1556 Report #: [id number] THIS REPORT FOR: cc: Maria Ramírez MD, Diane S. MD Blick,Florentino Jimenez MD [facility] ~ APPROVED REPORT Study performed: 02/24/2021 15:23:18 EXAM: Limited 2D Echocardiogram Patient Location: In-Patient Room #: [facility] Status: routine BSA: 2.14 HR: 75 bpm BP: 102/62 mmHg Rhythm: NSR Other Information Study Quality: Adequate Indications Atrial Fibrillation Left Ventricle The left ventricle is normal size. There is normal LV segmental wall motion. There is normal left ventricular wall thickness. The left ventricular systolic function is normal. The left ventricular ejection fraction is within the normal range. LVEF is 55-60%. Right Ventricle The right ventricle is normal size. The right ventricular systolic function is normal. Atria The left atrium size is normal. The right atrium size is normal. Aortic Valve The aortic valve is normal in structure. Mitral Valve The mitral valve [place] [address] 2 D/M-MODE ECHOCARDIOGRAM Name: KATI YEE Room: [address] IN M.R.#: [id number] Admission: 01/08/21 Attend Phys: Elise Agustin MD Discharge: Date of : 48 Date of Service: 02/24/21 1556 Report #: [id number] Tricuspid Valve The tricuspid valve is normal in structure. Pulmonic Valve Pulmonic valve is not well visualized. Great Vessels The aortic root is normal in size. IVC is normal in size and collapses >50% with inspiration. Pericardium There is no pericardial effusion. <Conclusion> LVEF is 55-60%. There is no pericardial effusion. <ELECTRONICALLY SIGNED> By: Florentino Smith MD, FACC 02/24/21 1556 1556 55 Florentino Smith MD, FACC /INF
[2021-02-25] VITALS (82 sets, daily range): BP systolic 83–145; BP diastolic 46–101
[2021-02-25 06:23] LABS: HEMATOCRIT 25.4 % (37.0-47.0); HEMOGLOBIN 8.7 gm/dL (12.0-15.0); MCH 31.4 pg (26.0-34.0); MCHC 34.5 g/dL (28.0-37.0); MCV 91.2 fL (80.0-100.0); MPV 9.8 fl. (7.2-11.1); RBC 2.78 mil/uL (4.20-5.00); RDW-CV 19.1 % (10.5-14.5); WBC 12.1 thou/uL (4.0-11.0)
[2021-02-25 06:32] LABS: ALBUMIN 1.8 g/dL (3.4-5.0); CREATININE 0.4 mg/dL (0.6-1.3); MAGNESIUM 2.2 mg/dL (1.8-2.4); POTASSIUM 4.2 mmol/L (3.5-5.1); TOTAL BILIRUBIN 0.2 mg/dL (<0.1-1.0); TOTAL PROTEIN 4.8 g/dL (6.4-8.2)
[2021-02-26] VITALS (22 sets, daily range): BP systolic 102–130; BP diastolic 60–83
[2021-02-26 05:36] LABS: HEMATOCRIT 23.1 % (37.0-47.0); HEMOGLOBIN 8.1 gm/dL (12.0-15.0); MCHC 34.9 g/dL (28.0-37.0); MCV 91.6 fL (80.0-100.0); MPV 10.1 fl. (7.2-11.1); NUCLEATED RBCS 0 /100WBC; PLATELET COUNT* 119 thou/uL (150-400); RBC 2.52 mil/uL (4.20-5.00); RDW-CV 18.6 % (10.5-14.5)
[2021-02-26 05:44] LABS: ALBUMIN 2.3 g/dL (3.4-5.0); CALCIUM 8.3 mg/dL (8.5-10.1); CREATININE 0.5 mg/dL (0.6-1.3); MAGNESIUM 2.3 mg/dL (1.8-2.4); TOTAL BILIRUBIN 0.3 mg/dL (<0.1-1.0)
[2021-02-26 06:06] LABS: POTASSIUM 3.1 mmol/L (3.5-5.1)
[2021-02-26 07:33] LABS: ANISOCYTOSIS 2+; ATYPICAL LYMPHS 3 %; METAMYELOCYTES 7 %; PLATELET ESTIMATE ADEQUATE; POLYCHROMASIA 1+
[2021-02-26 07:35] LABS: ABSOLUTE LYMPHOCYTES 1.4 thou/uL (0.8-5.3); ABSOLUTE NEUTROPHILS 10.9 thou/uL (1.6-8.1)
[2021-02-26 07:36] LABS: WBC 12.3 thou/uL (4.0-11.0)
[2021-02-26] MEDS ORDERED: PACERONE 200 M200 M1 PERTUBE (13:18)
[2021-02-26] MEDS ORDERED: ENOXAPARIN100 MG/11 SUBQ (13:18)
[2021-02-26] MEDS ORDERED: MUPIROCIN22 GM TOP (13:18)
[2021-02-26] MEDS ORDERED: ACIDOPHILUS1 EAC4 PO (13:18)
[2021-02-26] MEDS ORDERED: MIDODRINE HCL 55 M1 PO (13:18)
[2021-02-26] MEDS ORDERED: DEXAMETHASO0.1 MG/M1 IVPUSH (13:18)
[2021-02-26] MEDS ORDERED: BROVANA15 MCG/2 M INH (13:18)
[2021-02-26] MEDS ORDERED: ABREVA2 GM TOP (13:18)
[2021-02-26] MEDS ORDERED: LEVALBUTER1.25 MG/0. INH (13:18)
[2021-02-26] MEDS ORDERED: LORAZEPAM 0.50.5 MG PERTUBE (13:18)
[2021-02-26] MEDS ORDERED: DURAGESIC1 EAC3 TRANSDERM (13:18)
[2021-02-26] MEDS ORDERED: BUSPIRONE HCL5 MG PERTUBE (13:18)
[2021-02-26] MEDS ORDERED: PROTONIX IV40 MG IVPUSH (13:18)
[2021-02-26] MEDS ORDERED: MELATONIN5 M1 PERTUBE (13:18)
[2021-02-26] MEDS ORDERED: HUMALOG100 UNIT/1 SUBQ (13:18)
== END 2021-02-26 17:30 | DRG 4 ==
LOC: M.ERS 20:36 → M.TBA-ER 01-08 01:01 → M.2W 01-08 01:01 → M.ICU 01-08 01:01 → M.2W 01-08 02:25 → M.ICU 01-11 10:54 → M.2W 01-27 15:05 → M.ICU 01-29 08:40
PROVIDERS: Internal Medicine; Internal Medicine Critical Care Medicine; Pediatrics; Personal Emergency Response Attendant; Surgery; ADMIT Family Medicine; ATTEND Family Medicine
PROC: 5A0935A Assistance with Respiratory Ventilation, Less than 24 Consecutive Hours, High Flow/Velocity Cannula (ICD-10-PCS; 2021-01-08)
PROC: 5A09357 Assistance with Respiratory Ventilation, Less than 24 Consecutive Hours, Continuous Positive Airway Pressure (ICD-10-PCS; 2021-01-08)
PROC: XW13325 Transfusion of Convalescent Plasma (Nonautologous) into Peripheral Vein, Percutaneous Approach, New Technology Group 5 (ICD-10-PCS; 2021-01-09)
PROC: 5A0935A Assistance with Respiratory Ventilation, Less than 24 Consecutive Hours, High Flow/Velocity Cannula (ICD-10-PCS; 2021-01-09)
PROC: 5A09357 Assistance with Respiratory Ventilation, Less than 24 Consecutive Hours, Continuous Positive Airway Pressure (ICD-10-PCS; 2021-01-09)
PROC: 5A0935A Assistance with Respiratory Ventilation, Less than 24 Consecutive Hours, High Flow/Velocity Cannula (ICD-10-PCS; 2021-01-10)
PROC: 5A09357 Assistance with Respiratory Ventilation, Less than 24 Consecutive Hours, Continuous Positive Airway Pressure (ICD-10-PCS; 2021-01-10)
PROC: 5A1955Z Respiratory Ventilation, Greater than 96 Consecutive Hours (ICD-10-PCS; 2021-01-11)
PROC: 0DH68UZ Insertion of Feeding Device into Stomach, Via Natural or Artificial Opening Endoscopic (ICD-10-PCS; 2021-01-11)
PROC: 0BH17EZ Insertion of Endotracheal Airway into Trachea, Via Natural or Artificial Opening (ICD-10-PCS; 2021-01-11)
PROC: XW033E5 Introduction of Remdesivir Anti-infective into Peripheral Vein, Percutaneous Approach, New Technology Group 5 (ICD-10-PCS; 2021-01-17)
PROC: 5A0945A Assistance with Respiratory Ventilation, 24-96 Consecutive Hours, High Flow/Velocity Cannula (ICD-10-PCS; 2021-01-18)
PROC: 5A0955A Assistance with Respiratory Ventilation, Greater than 96 Consecutive Hours, High Flow/Velocity Cannula (ICD-10-PCS; 2021-01-20)
PROC: 5A09357 Assistance with Respiratory Ventilation, Less than 24 Consecutive Hours, Continuous Positive Airway Pressure (ICD-10-PCS; 2021-01-20)
PROC: 5A0945A Assistance with Respiratory Ventilation, 24-96 Consecutive Hours, High Flow/Velocity Cannula (ICD-10-PCS; 2021-01-26)
PROC: 5A09357 Assistance with Respiratory Ventilation, Less than 24 Consecutive Hours, Continuous Positive Airway Pressure (ICD-10-PCS; 2021-01-29)
PROC: 5A0935A Assistance with Respiratory Ventilation, Less than 24 Consecutive Hours, High Flow/Velocity Cannula (ICD-10-PCS; 2021-01-29)
PROC: 5A09357 Assistance with Respiratory Ventilation, Less than 24 Consecutive Hours, Continuous Positive Airway Pressure (ICD-10-PCS; 2021-01-30)
PROC: 5A1955Z Respiratory Ventilation, Greater than 96 Consecutive Hours (ICD-10-PCS; 2021-01-30)
PROC: 0BH17EZ Insertion of Endotracheal Airway into Trachea, Via Natural or Artificial Opening (ICD-10-PCS; 2021-01-30)
PROC: 02HV33Z Insertion of Infusion Device into Superior Vena Cava, Percutaneous Approach (ICD-10-PCS; 2021-01-31)
PROC: B548ZZA Ultrasonography of Superior Vena Cava, Guidance (ICD-10-PCS; 2021-01-31)
PROC: 30233N1 Transfusion of Nonautologous Red Blood Cells into Peripheral Vein, Percutaneous Approach (ICD-10-PCS; 2021-02-01)
PROC: 30233M1 Transfusion of Nonautologous Plasma Cryoprecipitate into Peripheral Vein, Percutaneous Approach (ICD-10-PCS; 2021-02-01)
PROC: 30233R1 Transfusion of Nonautologous Platelets into Peripheral Vein, Percutaneous Approach (ICD-10-PCS; 2021-02-01)
PROC: 5A12012 Performance of Cardiac Output, Single, Manual (ICD-10-PCS; 2021-02-11)
PROC: 0BJ08ZZ Inspection of Tracheobronchial Tree, Via Natural or Artificial Opening Endoscopic (ICD-10-PCS; principal; 2021-02-12)
PROC: 0B110F4 Bypass Trachea to Cutaneous with Tracheostomy Device, Open Approach (ICD-10-PCS; principal; 2021-02-12)
PROC: 0W9930Z Drainage of Right Pleural Cavity with Drainage Device, Percutaneous Approach (ICD-10-PCS; 2021-02-17)
DX: A41.89 Other specified sepsis (principal); U07.1 COVID-19; J96.01 Acute respiratory failure with hypoxia; J12.82 Pneumonia due to coronavirus disease 2019; E43 Unspecified severe protein-calorie malnutrition; I46.9 Cardiac arrest, cause unspecified; I48.20 Chronic atrial fibrillation, unspecified; I48.92 Unspecified atrial flutter; E87.0 Hyperosmolality and hypernatremia; J93.9 Pneumothorax, unspecified; B37.81 Candidal esophagitis; R73.9 Hyperglycemia, unspecified; I95.9 Hypotension, unspecified; J98.2 Interstitial emphysema; K20.90 Esophagitis, unspecified without bleeding; I10 Essential (primary) hypertension; N28.1 Cyst of kidney, acquired; D69.6 Thrombocytopenia, unspecified; D64.9 Anemia, unspecified; Z79.899 Other long term (current) drug therapy; Z88.1 Allergy status to other antibiotic agents; Z85.3 Personal history of malignant neoplasm of breast; Z92.21 Personal history of antineoplastic chemotherapy; Z68.24 Body mass index [BMI] 24.0-24.9, adult